=== PATIENT | female | born 1945 | race Caucasian/White ===

== ENCOUNTER → 2017-01-24 | Outpatient (CLI) | payer MEDICARE ==
--- NOTE | 2017-01-25 09:25 | MM ---
Reason for exam: screening (asymptomatic). Last mammogram was performed 1 year ago. History: Patient is postmenopausal. Physical Findings: A clinical breast exam by your physician is recommended on an annual basis and results should be correlated with mammographic findings. MG 3D Screening Mammo W/Cad Bilateral CC and MLO view(s) were taken. Prior study comparison: January 21, 2016, bilateral MG screening mammo w CAD. March 28, 2014, bilateral MG screening mammo w CAD. January 01, 2013, bilateral digital screening mammo w/CAD. The breast tissue is heterogeneously dense. This may lower the sensitivity of mammography. Finding: There are typically benign vascular calcifications in both breasts. There is no discrete abnormality. ASSESSMENT: Benign, BI-RAD 2 RECOMMENDATION: Routine screening mammogram of both breasts in 1 year.
== END | disposition home or self-care (01) ==
LOC: RADMAMWWP 08:58
PROVIDERS: ATTEND Family Medicine
DX: Z12.31 Encounter for screening mammogram for malignant neoplasm of breast (principal)
CPT/HCPCS: 77063; G0202

== ENCOUNTER → 2018-02-14 | Outpatient (CLI) | payer MEDICARE ==
--- NOTE | 2018-02-15 12:08 | MM ---
Reason for exam: screening (asymptomatic). Last mammogram was performed 1 year and 1 month ago. History: Patient is postmenopausal. Physical Findings: A clinical breast exam by your physician is recommended on an annual basis and results should be correlated with mammographic findings. MG 3D Screening Mammo W/Cad Bilateral CC and MLO view(s) were taken. Prior study comparison: January 24, 2017, bilateral MG 3d screening mammo w/cad. January 21, 2016, bilateral MG screening mammo w CAD. No significant changes when compared with prior studies. ASSESSMENT: Benign, BI-RAD 2 RECOMMENDATION: Routine screening mammogram of both breasts in 1 year.
== END | disposition home or self-care (01) ==
LOC: RADMAMWWP 09:45
PROVIDERS: ATTEND Family Medicine
DX: Z12.31 Encounter for screening mammogram for malignant neoplasm of breast (principal)
CPT/HCPCS: 77063; 77067

== ENCOUNTER → 2018-07-13 | Outpatient (CLI) | payer MEDICARE ==
--- NOTE | 2018-07-14 07:11 | US ---
EXAMINATION TYPE: US carotid duplex BILAT DATE OF EXAM: 07/13/2018 COMPARISON: NONE CLINICAL HISTORY: I65.23 OCCLUSION AND STENOSIS OF BOYD.CAROTID. Patient states that plaque was seen on her dental x-rays. EXAM MEASUREMENTS: RIGHT: Peak Systolic Velocity (PSV) cm/sec ----- Right CCA: 78.5 ----- Right ICA: 102 ----- Right ECA: 74.2 ICA/CCA ratio: 1.30 RIGHT: End Diastole cm/sec ----- Right CCA: 19.4 ----- Right ICA: 33.9 ----- Right ECA: 12.9 LEFT: Peak Systolic Velocity (PSV) cm/sec ----- Left CCA: 87.6 ----- Left ICA: 82.3 ----- Left ECA: 96.0 ICA/CCA ratio: 0.94 LEFT: End Diastole cm/sec ----- Left CCA: 19.9 ----- Left ICA: 24.9 ----- Left ECA: 11.6 VERTEBRALS (direction of flow): Right Vertebral: Antegrade Left Vertebral: Antegrade Rhythm: Normal Mild plaque, no significant velocity elevations. IMPRESSION: No evidence for hemodynamically significant stenosis. Criteria for Assigning % of Stenosis / Diameter reduction (Estimation based on the indirect measurements of the internal carotid artery velocities (ICA PSV). 1. Normal (no stenosis)=ICA PSV < 125 cm/s: ratio < 2.0: ICA EDV<40 cm/s. 2. Less than 50% stenosis=ICA PSV < 125 cm/s: ratio < 2.0: ICA EDV<40 cm/s. 3. 50 to 69% stenosis=ICA PSV of 125 to 230 cm/s: ration 2.0 ? 4.0: ICA EDV 40-100 cm/s. 4. Greater than 70% stenosis to near occlusion= ICA PSV > 230 cm/s: ratio > 4.0: ICA EDV > 100 cm/s. 5. Near occlusion= ICA PSV velocities may be low or undetectable: variable ratio and ICA EDV. 6. Total occlusion=unable to detect flow.
== END | disposition home or self-care (01) ==
LOC: RADUSWWP 15:17
PROVIDERS: ATTEND Family Medicine
DX: I65.23 Occlusion and stenosis of bilateral carotid arteries (principal)
CPT/HCPCS: 93880

== ENCOUNTER → 2019-02-16 | Outpatient (CLI) | payer MEDICARE ==
--- NOTE | 2019-02-20 14:50 | MM ---
Reason for exam: screening (asymptomatic). Last mammogram was performed 1 year ago. History: Patient is postmenopausal. Physical Findings: A clinical breast exam by your physician is recommended on an annual basis and results should be correlated with mammographic findings. MG 3D Screening Mammo W/Cad Bilateral CC and MLO view(s) were taken. Prior study comparison: February 14, 2018, bilateral MG 3d screening mammo w/cad. January 24, 2017, bilateral MG 3d screening mammo w/cad. The breast tissue is heterogeneously dense. This may lower the sensitivity of mammography. Benign appearing bilateral calcifications. Left upper outer quadrant middle posterior depth focal asymmetry 8cm from nipple measuring 1.6cm from nipple. ASSESSMENT: Incomplete: need additional imaging evaluation, BI-RAD 0 RECOMMENDATION: Ultrasound of the left breast. [facility] will attempt to contact patient to return for ultrasound.
== END | disposition home or self-care (01) ==
LOC: RADMAMWWP 07:32
PROVIDERS: ATTEND Family Medicine
DX: Z12.31 Encounter for screening mammogram for malignant neoplasm of breast (principal)
CPT/HCPCS: 77063; 77067

== ENCOUNTER → 2019-02-27 | Outpatient (CLI) | payer MEDICARE ==
--- NOTE | 2019-02-27 10:18 | USB ---
Reason for exam: additional evaluation requested from abnormal screening. History: Patient is postmenopausal. Physical Findings: Nurse did not find any significant physical abnormalities on exam. US Breast Workup Limited LT Left limited breast ultrasound including focal area of concern, retroareolar and axilla demonstrates a 0.8 x 0.9 x 0.9cm taller than wide, lobular, solid lesion at 1 o'clock correlates with mammogram, suspicious, biopsy recommended and a 1.3 x 1.0 x 0.4cm oval, cystic lesion at 3 o'clock, stable on mammogram back to 2012. These results were verbally communicated with the patient and result sheet given to the patient on 02/27/19. ASSESSMENT: Suspicious, BI-RAD 4 RECOMMENDATION: Ultrasound core biopsy of the left breast. Called Dr. Gates with mammographic findings and has scheduled an appointment for the patient for 03/02/19 at 9:[address] Mary. Biopsy scheduled for 03/12/19 at 12:20. PRELIMINARY REPORT CALLED AND FAXED TO DR. MARY ON 02/27/19.
== END | disposition home or self-care (01) ==
LOC: RADUSWWP 08:45
PROVIDERS: ATTEND Family Medicine
DX: R92.8 Other abnormal and inconclusive findings on diagnostic imaging of breast (principal)

== ENCOUNTER → 2019-03-02 | Outpatient (CLI) | payer MEDICARE ==
[2019-03-02 09:39] VITALS: BP 170/84; PULSE 85; RESP 18; TEMP 97.9; BMI 36.3
--- NOTE | 2019-03-02 09:58 | P.GSHP ---
History of Present Illness H&P Date: 03/02/19 Chief Complaint: Abnormal radiographs Sugey is a 73-year-old white female status post routine screening mammogram [place] [id number]. The mammogram revealed a left upper outer quadrant middle posterior depth 1.6 cm focal asymmetry. [place] [id number]. This revealed a 0.8 x 0.9 cm tolerated and wide lobular solid lesion at 1:00 correlating with a mammographic area of concern biopsy was recommended. She was also noted to have a 1.3 x 1 cm cystic lesion at 3:00 which was felt to be stable. The patient herself has not felt anything of concern in her breasts. No nipple discharge or skin changes. No history of recent trauma or infection in the breast. She did not have anything of concern noted in the right breast on her radiographs. The patient drinks approximately 3 cups of coffee per day. She does not drink pop. She does not smoke and is not exposed to secondhand smoke. She eats chocolate occasionally. Family history: 1. father: rectal 2. paternal grandfather: colon cancer 3. sister: lung cancer Hormonal History: menarche: 16 , breast fed: no, age at first : 21 menopause: hysterectomy at 40 still has ovaries, done for fibroids BCP: 2 years hormones: 1 year at age 52 think just estrogne Past surgical history: 1. Tubal ligation 2. Hysterectomy 3. Rectocele 4. Cystocele 5. Right arm fracture of humerus Medical history: arthritis right knee pain hypothyroid Social History: smoke:none alcohol: none drugs: none - Constitutional Constitutional: Denies chills, Denies fever - EENT Comment: wears glasses Eyes: denies blurred vision, denies pain Ears: deny: decreased hearing, tinnitus Ears, nose, mouth and throat: Denies headache, Denies sore throat - Breasts Breasts: bilateral: as per HPI - Cardiovascular Cardiovascular: Denies chest pain, Denies shortness of breath - Respiratory Respiratory: Denies cough, Denies 7 - Gastrointestinal Gastrointestinal: Denies abdominal pain, Denies diarrhea, Denies nausea, Denies vomiting - Genitourinary (Female) Comment: Cystocele repair Genitourinary: Denies dysuria, Denies hematuria - Menstruation Menstruation: Reports post hysterectomy - Musculoskeletal Comment: arthritis - Integumentary Integumentary: Denies pruritus, Denies rash - Neurological Neurological: Denies numbness, Denies weakness - Psychiatric Psychiatric: Denies anxiety, Denies depression - Endocrine Endocrine: Denies fatigue, Denies weight change - Hematologic/Lymphatic Comment: baby aspirin every day - Allergic/Immunologic Allergic/Immunologic: Reports as per HPI Past Medical History Past Medical History: Hyperlipidemia, Thyroid Disorder Additional Past Medical History / Comment(s): varicose veins, past hx migraines, fell Tuesday & fx. right upper arm-currently sling & half cast History of Any Multi-Drug Resistant Organisms: None Reported Past Surgical History: Appendectomy, Hysterectomy Additional Past Surgical History / Comment(s): rectocele/cystocele repair, cataract surg. Past Anesthesia/Blood Transfusion Reactions: Motion Sickness Past Psychological History: No Psychological Hx Reported Smoking Status: Never smoker Past Alcohol Use History: None Reported Past Drug Use History: None Reported - Past Family History Father Family Medical History: Cancer Sister(s) Family Medical History: Cancer Medications and Allergies Home Medications Medication Instructions Recorded Confirmed Type Aspirin 81 mg PO DAILY 04/19/14 06/27/15 History Levothyroxine Sodium [Synthroid] 50 mcg PO DAILY 04/19/14 06/27/15 History Simvastatin [Zocor] 20 mg PO DAILY 04/19/14 06/27/15 History Calcium Carbonate [Calcium] 1,200 mg PO DAILY 06/25/15 06/27/15 History Cholecalciferol [Vitamin D3] 1,000 unit PO DAILY@1200 06/25/15 06/27/15 History Multivit with Calcium,Iron,Min 1 each PO DAILY 06/25/15 06/27/15 History [Women's Daily Multivitamin] Allergies Allergy/AdvReac Type Severity Reaction Status Date / Time nickel [Nickel] Allergy Rash/Hives Verified 03/02/19 09:39 Surgical - Exam Vital Signs Temp Pulse Resp BP Pulse Ox 97.9 F 85 18 170/84 95 03/02/19 09:32 03/02/19 09:32 03/02/19 09:32 03/02/19 09:32 03/02/19 09:32 BMI 36.3 - General well developed, well nourished, no distress - Eyes normal ocular movement - ENT no hearing loss, no congestion - Neck no masses, trachea midline - Respiratory normal respiratory effort, clear to auscultation - Cardiovascular Rhythm: regular Heart Sounds: normal: S1, S2 - Abdomen Abdomen: soft, non tender, no guarding, no rigid, no rebound - Integumentary normal turgor - Neurologic no disoriented, no combative - Musculoskeletal normal gait, normal posture - Psychiatric oriented to time, oriented to person, oriented to place, speech is normal, memory intact breast exam: Right breast: Multi-positional exam no dominant masses or nodules of concern Right axilla: No adenopathy of concern Left breast: Slightly inverted nipple patient states this has been chronic Multi-positional exam fibrocystic changes no dominant masses or nodules of concern Left axilla: No adenopathy of concern Results Mammogram and ultrasound reports reviewed Assessment and Plan Assessment: Impression: 1. Abnormal mammogram left breast 2. ultrasound core biopsy of the left breast 3. Family history of cancer 4. Arthritis 5. Hypothyroid 6. Fibrocystic breast changes Plan: 1. Ultrasound-guided core biopsy left breast 2. Follow-up after ultrasound-guided core biopsy 3. Medical management of medical conditions Cc: Dr. Rob Gates
== END | disposition home or self-care (01) ==
LOC: WWCWWP 09:27
PROVIDERS: ATTEND Surgery
DX: Z53.9 Procedure and treatment not carried out, unspecified reason (principal)

== ENCOUNTER → 2019-03-12 | Day surgery (SDC) | payer MEDICARE ==
[2019-03-12 11:41] VITALS: RESP 16; BMI 36.3
[2019-03-12 14:46] VITALS: BP 149/81; PULSE 73; TEMP 98.4
--- NOTE | 2019-03-12 16:39 | USB ---
EXAMINATION TYPE: US biopsy breast VAD LT, Postbiopsy MG diagnostic mammo LT wo CAD DATE OF EXAM: 03/12/2019 CLINICAL HISTORY: 73-year-old female R92.8 ABN MAMMO. TECHNIQUE: Ultrasound guided core biopsy of 1:00 left breast. COMPARISON: 02/16/2019 and 02/27/2019 FINDINGS: The procedure of ultrasound guided core biopsy was explained to the patient. Benefits, alternatives, and risks were discussed. An informed consent was then obtained. The patient was placed in supine positioning for imaging and for the procedure. The overlying skin was prepped and draped in usual sterile fashion. Lidocaine was used as anesthetic into the skin and subcutaneous tissue up to area of concern in the 1:00 left breast. Under ultrasound guidance, a 13-gauge vacuum-assisted mammotome biopsy gun device was used to obtain 6 core samples. Following this, a coil clip was left in lesion. The patient tolerated the procedure well without any immediate complication. The patient was kept in the radiology department for short stay after the procedure and then discharged home in stable condition. Post procedure mammogram shows clip in the posterior upper-outer quadrant more peripheral in location than the area of isodense focal asymmetry which appears to have been present dating back to 2013. IMPRESSION: Successful, uncomplicated ultrasound guided core biopsy of area of concern in the 1:00 left breast, full pathology results to follow. The clip is located in the peripheral upper outer quadrant and mammographic review shows no clear mammographic correlate to the biopsy ultrasound finding. Pathology Results: Benign LEFT BREAST LESION, NEEDLE CORE BIOPSY: Benign fibrovascular and adipose tissue with hemorrhage. Cannot rule out intramammary lipoma. Recommendation Follow up mammogram of the left breast in 6 months. DANIELLA
== END ==
LOC: RADUSWWP 11:08
PROVIDERS: ATTEND Surgery
DX: N64.89 Other specified disorders of breast (principal)
CPT/HCPCS: 88305; 77065; 19083; A4648; J2001

== ENCOUNTER → 2019-03-23 | Outpatient (CLI) | payer MEDICARE ==
[2019-03-23 16:26] VITALS: BP 141/82; PULSE 75; RESP 18; TEMP 98.1; BMI 36.1
--- NOTE | 2019-03-23 17:32 | P.PN ---
Subjective Progress Note Date: 03/23/19 Sugey is a 73-year-old white female status post ultrasound-guided core biopsy of the left breast on [id number]. Pathology revealed benign fibrovascular and adipose tissue with hemorrhage. Cannot rule out intramammary lipoma. The patient post procedure does not have any complaints related to the procedure. Objective - Vital Signs Vital signs: Vital Signs Temp 98.1 F 03/23/19 16:22 Pulse 75 03/23/19 16:22 Resp 18 03/23/19 16:22 BP 141/82 03/23/19 16:22 Pulse Ox 98 03/23/19 16:22 Intake & Output 03/22/19 03/23/19 03/23/19 18:59 06:59 18:59 Weight 83.915 kg - Exam BMI 36.1 - Constitutional General appearance: Present: obese - EENT Eyes: Present: EOMI ENT: Present: hearing grossly normal - Neck Neck: Present: normal ROM - Respiratory Respiratory: bilateral: CTA - Cardiovascular Rhythm: regular Heart sounds: normal: S1, S2 - Integumentary Integumentary: Present: normal turgor - Musculoskeletal Musculoskeletal: Present: gait normal - Psychiatric Psychiatric: Present: A&O x's 3, appropriate affect, intact judgment & insight - Additional findings Additional findings: Left breast : biopsy site clean and dry no evidence of infection Assessment and Plan Assessment: Impression: 1. Patient status post left breast ultrasound core biopsy, pathology benign, will review with radiology to be sure the lesion was concordant as it was tolerated and wide Plan: 1. Review case with radiology next week if the lesion is felt to be concordant patient will have repeat left breast mammogram and ultrasound in 6 months with physician exam at that time 2. If cases discordant patient will have needle local excisional biopsy Cc: Dr. Rob Gates
== END ==
LOC: WWCWWP 16:04
PROVIDERS: ATTEND Surgery
DX: Z53.9 Procedure and treatment not carried out, unspecified reason (principal)

== ENCOUNTER → 2020-04-10 | Outpatient (CLI) | payer MEDICARE ==
--- NOTE | 2020-04-14 14:09 | MM ---
Reason for exam: screening (asymptomatic). Last mammogram was performed 1 year and 1 month ago. History: Patient is postmenopausal. Benign US biopsy breast VAD LT of the left breast, March 12, 2019. Physical Findings: A clinical breast exam by your physician is recommended on an annual basis and results should be correlated with mammographic findings. MG 3D Screening Mammo W/Cad Bilateral CC and MLO view(s) were taken. Prior study comparison: March 12, 2019, left breast MG diagnostic mammo LT wo CAD. February 16, 2019, bilateral MG 3d screening mammo w/cad. There are scattered fibroglandular densities. No significant changes when compared with prior studies. ASSESSMENT: Benign, BI-RAD 2 RECOMMENDATION: Routine screening mammogram of both breasts in 1 year.
== END | disposition home or self-care (01) ==
LOC: RADMAMWWP 11:01
PROVIDERS: ATTEND Family Medicine
DX: Z12.31 Encounter for screening mammogram for malignant neoplasm of breast (principal)
CPT/HCPCS: 77063; 77067

== ENCOUNTER → 2020-10-21 | Outpatient (CLI) | payer MEDICARE ==
--- NOTE | 2020-10-21 12:31 | CT ---
EXAMINATION TYPE: CT abdomen pelvis w con DATE OF EXAM: 10/21/2020 COMPARISON: None HISTORY: R10.9 abd pain CONTRAST: CT scan of the abdomen and pelvis is performed with Oral Contrast and with IV Contrast, patient injec todd with 100 mL of Isovue 300. FINDINGS: LUNG BASES-: No visible nodule. No infiltrate. Small hiatal hernia noted. LIVER/GB: No calcified gallstones. No space occupying hepatic lesion. Biliary tree is of normal ca liber. PANCREAS: No inflammation. No distinct mass. SPLEEN: No splenic enlargement. No lesion seen. ADRENALS: No nodule. No thickening. KIDNEYS/BLADDER: No hydronephrosis. No nephrolithiasis. No distinct renal mass. Urinary bladder g rossly unremarkable. BOWEL: Normal appendix. Normal bowel caliber. No inflammation. GENITAL ORGANS: Hysterectomy changes noted. LYMPH NODES: No greater than 1cm abdominal or pelvic lymph nodes are appreciated. AORTA: No significant abnormality. OSSEOUS STRUCTURES: No significant abnormality is seen. OTHER: No significant additional abnormality is seen. IMPRESSION: 1. No acute process to account for the patient's symptoms.
== END | disposition home or self-care (01) ==
LOC: RADCTMAIN 10:28
PROVIDERS: ATTEND Nurse Practitioner
DX: R10.9 Unspecified abdominal pain (principal)
CPT/HCPCS: 82565; 84520; 74177; 36415; Q9967

== ENCOUNTER 2020-12-24 08:36 | Day surgery (SDC) | payer MEDICARE ==
[2020-12-19 12:05] VITALS: BMI 33.7
--- NOTE | 2020-12-24 08:14 | P.GSHP ---
History of Present Illness H&P Date: 12/24/20 CHIEF COMPLAINT: GERD and colon screen HISTORY OF PRESENT ILLNESS: The patient is a 75-year-old female who presents with gastroesophageal reflux disease and need for colon screen. Upper and lower endoscopy were offered for further evaluation and management. PAST MEDICAL HISTORY: Please see list. PAST SURGICAL HISTORY: Please see list. MEDICATIONS: Please see list. ALLERGIES: Please see list. SOCIAL HISTORY: No illicit drug use FAMILY HISTORY: No reports of Crohn disease or ulcerative colitis. REVIEW OF ORGAN SYSTEMS: CONSTITUTIONAL: No reports of fevers or chills. GI: Denies any blood in stools or constipation. PHYSICAL EXAM: VITAL SIGNS: Stable GENERAL: Well-developed pleasant in no acute distress. HEENT: No scleral icterus. Extraocular movements grossly intact. Moist buccal mucosa. NECK: Supple without lymphadenopathy. CHEST: Unlabored respirations. Equal bilateral excursions. CARDIOVASCULAR: Regular rate and rhythm. Distal 2+ pulses. ABDOMEN: Soft, nondistended. MUSCULOSKELETAL: No clubbing, cyanosis, or edema. ASSESSMENT: 1. Gastroesophageal reflux disease 2. Colon screen. PLAN: 1. Recommend proceeding with an upper and lower endoscopy Past Medical History Past Medical History: Hyperlipidemia, Thyroid Disorder Additional Past Medical History / Comment(s): varicose veins, past hx migraines, fell 2015 & fx. right upper arm-currently sling & half cast,occas vertigo History of Any Multi-Drug Resistant Organisms: None Reported Past Surgical History: Appendectomy, Hysterectomy, Orthopedic Surgery, Tubal Ligation Additional Past Surgical History / Comment(s): rectocele/cystocele repair, cataract surg, fx right arm-put a plate and screws in Past Anesthesia/Blood Transfusion Reactions: No Reported Reaction Additional Past Anesthesia/Blood Transfusion Reaction / Comment(s): occas vertigo Smoking Status: Never smoker - Past Family History Father Family Medical History: Cancer Sister(s) Family Medical History: Cancer Medications and Allergies Home Medications Medication Instructions Recorded Confirmed Type Aspirin 81 mg PO DAILY 04/19/14 12/19/20 History Levothyroxine Sodium [Synthroid] 50 mcg PO QAM 04/19/14 12/19/20 History Simvastatin [Zocor] 20 mg PO DAILY 04/19/14 12/19/20 History Cholecalciferol [Vitamin D3] 500 unit PO DAILY@1200 06/25/15 12/19/20 History Multivit with Calcium,Iron,Min 1 each PO DAILY 06/25/15 12/19/20 History [Women's Daily Multivitamin] Calcium Carbonate/Vitamin D3 1 each PO DAILY 12/19/20 12/19/20 History [Calcium 600 mg-D3 20 mcg (800 unit)] Famotidine [Pepcid] 40 mg PO DAILY 12/19/20 12/19/20 History Magnesium 250 mg PO MOWEFR 12/19/20 12/19/20 History Zinc 30 mg PO TUTHSA 12/19/20 12/19/20 History Allergies Allergy/AdvReac Type Severity Reaction Status Date / Time adhesive Allergy Rash/Hives Verified 12/19/20 12:05 nickel [Nickel] Allergy Rash/Hives Verified 12/19/20 11:55
[~2020-12-24 08:36] MED LIST: LACTATED RINGERS 1,000 ML IV SCH; LIDOCAINE 1% (10MG/ML) FOR IV START INTRADERMA PRN
[2020-12-24 09:04] VITALS: TEMP 98.3
[2020-12-24] MEDS ORDERED: LIDOCAINE 1% INJ 10MG/ML (20 ML MDV) ONE (09:33)
[2020-12-24] MEDS ORDERED: PROPOFOL 10 MG/ML 20 ML VIAL IV ONE (09:33)
--- NOTE | 2020-12-24 09:45 | P.PCN ---
Date of Procedure: 12/24/20 Description of Procedure: PREOPERATIVE DIAGNOSIS: Gastroesophageal reflux disease. POSTOPERATIVE DIAGNOSIS: Gastritis. Superficial gastric ulcer Gastroesophageal reflux disease. Diaphragmatic hiatal hernia OPERATION: Esophagogastroduodenoscopy with biopsies along antrum. SURGEON: Jenifer Shen MD ANESTHESIA: MAC. INDICATIONS: The patient is a 75-year-old female who presents with a history of reflux disease. Benefits and risks of the procedure were described. Informed consent was obtained. DESCRIPTION: The patient was brought into the endoscopy suite and laid in the left lateral decubitus position. An Olympus gastroscope was passed along the posterior oropharynx down to the distal esophagus where the squamocolumnar junction was encountered at 35 cm from the incisors. The stomach was entered and no bile reflux was found. Additional findings are listed below. Biopsies with cold forceps were obtained of the antrum. The first through third portion of the duodenum was examined and unremarkable. Retroflexion of the scope confirmed Hill grade 2 lower esophageal valve. The squamocolumnar junction demonstrated LA grade B erosive esophagitis. The stomach was desufflated. The patient tolerated the procedure well. FINDINGS: Squamocolumnar junction 35 cm from the incisors. Diaphragmatic hiatus at 37 cm. Hiatal hernia, 2 cm Hill grade 2 lower esophageal valve. LA grade B erosive esophagitis. No active duodenitis. Superficial gastric ulcer without bleeding Chronic gastritis RECOMMENDATIONS: Upper endoscopy as needed. Omeprazole 40 mg daily for 2 weeks
--- NOTE | 2020-12-24 10:23 | P.PCN ---
Date of Procedure: 12/24/20 Description of Procedure: PREOPERATIVE DIAGNOSIS: Family history malignant colon polyps Colonoscopy screening POSTOPERATIVE DIAGNOSIS: Family history malignant colon polyps Tubular adenoma ascending colon Tubular adenoma rectum OPERATION: Colonoscopy to the ileocecal valve and appendiceal orifice, cecum Colonoscopy with hot snare polypectomy Colonoscopy with cold forceps biopsy SURGEON: Jenifer Shen MD. ANESTHESIA: MAC. INDICATIONS: The patient is an 75-year-old female who presents family history of malignant colon polyps. She presents for colonoscopy screening. Benefits and risks were described and informed consent was obtained. DESCRIPTION OF PROCEDURE: The patient had undergone Sutab prep. The patient had been brought into the operating room and laid in the left lateral decubitus position. After adequate intravenous sedation, the rectum was examined with 2% lidocaine jelly. No external hemorrhoids were encountered. The rectal tone was within normal limits. No lesions were palpated in the rectal vault. An Olympus colonoscope was advanced until the cecum, ileocecal valve and appendiceal orifice were clearly viewed. The prep was excellent. No sigmoid diverticulosis was encountered. The sigmoid colon was highly redundant requiring abdominal wall pressure. Colonic polyps were found and removed. No evidence of focal colitis was found. Retroflexion of the scope demonstrated grade 1 internal hemorrhoids without active bleeding or inflammation. The colon was desufflated. The patient had tolerated the procedure well. Withdrawal time was over 6 minutes. FINDINGS: Aronchick preparation quality scale 1 (1-5) Internal hemorrhoids, grade 1 No external hemorrhoids No arteriovenous malformations. No large sigmoid diverticulosis Removal of 2 polyps: - Snare polypectomy at rectum 10 mm tubulovillous adenoma polyp. - Cold forceps biopsy at ascending colon, 4 mm polyp. No focal colitis. RECOMMENDATIONS: Repeat colonoscopy in 3 years, 2023 Plan - Discharge Summary Discharge Rx Participant: No New Discharge Prescriptions: New Omeprazole [PriLOSEC] 40 mg PO DAILY #14 cap Continue Simvastatin [Zocor] 20 mg PO DAILY Levothyroxine Sodium [Synthroid] 50 mcg PO QAM Aspirin 81 mg PO DAILY Cholecalciferol [Vitamin D3 (25 Mcg = 1000 Iu)] 500 unit PO DAILY@1200 Multivit with Calcium,Iron,Min [Women's Daily Multivitamin] 1 each PO DAILY Famotidine [Pepcid] 40 mg PO DAILY Zinc 30 mg PO TUTHSA Magnesium 250 mg PO MOWEFR Calcium Carbonate/Vitamin D3 [Calcium 600 mg-D3 20 mcg (800 unit)] 1 each PO DAILY Discharge Medication List Aspirin 81 mg PO DAILY 04/19/14 [History] Levothyroxine Sodium [Synthroid] 50 mcg PO QAM 04/19/14 [History] Simvastatin [Zocor] 20 mg PO DAILY 04/19/14 [History] Cholecalciferol [Vitamin D3 (25 Mcg = 1000 Iu)] 500 unit PO DAILY@1200 06/25/15 [History] Multivit with Calcium,Iron,Min [Women's Daily Multivitamin] 1 each PO DAILY 06/25/15 [History] Calcium Carbonate/Vitamin D3 [Calcium 600 mg-D3 20 mcg (800 unit)] 1 each PO DAILY 12/19/20 [History] Famotidine [Pepcid] 40 mg PO DAILY 12/19/20 [History] Magnesium 250 mg PO MOWEFR 12/19/20 [History] Zinc 30 mg PO TUTHSA 12/19/20 [History] Omeprazole [PriLOSEC] 40 mg PO DAILY #14 cap 12/24/20 [Rx] Follow up Appointment(s)/Referral(s): Jenifer Shen MD [STAFF PHYSICIAN] - 12/30/20 Patient Instructions/Handouts: *Surgery [facility] - (Anesthesia) Endoscopy Discharge Instructions, Colorectal Polyps (DC), Peptic Ulcer (DC), Diet for Stomach Ulcers and Gastritis (ED) Activity/Diet/Wound Care/Special Instructions: Repeat colonoscopy 3 years, 2023 Discharge Disposition: HOME SELF-CARE
[2020-12-24 10:36] VITALS: BP 160/87; PULSE 64; RESP 18
== END 2020-12-24 11:04 | disposition home or self-care (01) ==
LOC: ORWHC2ENDO 08:36
PROVIDERS: ATTEND Surgery Plastic and Reconstructive Surgery
DX: Z12.11 Encounter for screening for malignant neoplasm of colon (principal); K64.8 Other hemorrhoids; K29.50 Unspecified chronic gastritis without bleeding; D12.6 Benign neoplasm of colon, unspecified; E78.5 Hyperlipidemia, unspecified; E07.9 Disorder of thyroid, unspecified; Z80.0 Family history of malignant neoplasm of digestive organs; Z79.899 Other long term (current) drug therapy; Z91.048 Other nonmedicinal substance allergy status
CPT/HCPCS: 88305; 88342; 45380; 45385; 43239; J2001; J2704

== ENCOUNTER 2021-02-18 09:00 | Day surgery (SDC) | payer MEDICARE ==
[2021-02-13 11:22] VITALS: BMI 32.8
--- NOTE | 2021-02-18 05:58 | P.GSHP ---
History of Present Illness H&P Date: 02/18/21 CHIEF COMPLAINT: GERD HISTORY OF PRESENT ILLNESS: The patient is a 75-year-old female who presents reports gastroesophageal reflux disease. Upper endoscopy was offered for further evaluation and management. PAST MEDICAL HISTORY: Please see list. PAST SURGICAL HISTORY: Please see list. MEDICATIONS: Please see list. ALLERGIES: Please see list. SOCIAL HISTORY: No illicit drug use FAMILY HISTORY: No reports of Crohn disease or ulcerative colitis. REVIEW OF ORGAN SYSTEMS: CONSTITUTIONAL: No reports of fevers or chills. GI: Denies any blood in stools or constipation. PHYSICAL EXAM: VITAL SIGNS: Stable GENERAL: Well-developed and pleasant in no acute distress. HEENT: No scleral icterus. Extraocular movements grossly intact. Moist buccal mucosa. NECK: Supple without lymphadenopathy. CHEST: Unlabored respirations. Equal bilateral excursions. CARDIOVASCULAR: Regular rate and rhythm. Distal 2+ pulses. ABDOMEN: Soft, nondistended. MUSCULOSKELETAL: No clubbing, cyanosis, or edema. ASSESSMENT: 1. Gastroesophageal reflux disease PLAN: 1. Recommend proceeding with an upper endoscopy Past Medical History Past Medical History: Hyperlipidemia, Thyroid Disorder Additional Past Medical History / Comment(s): varicose veins, past hx migraines, fell 2015 & fx. right upper.occas vertigo, Dx. wit H pylori- has been on antbx. & re checking for this. History of Any Multi-Drug Resistant Organisms: None Reported Past Surgical History: Appendectomy, Hysterectomy, Orthopedic Surgery, Tubal Ligation Additional Past Surgical History / Comment(s): rectocele/cystocele repair, cataract surg, fx right arm-put a plate and screws in Past Anesthesia/Blood Transfusion Reactions: No Reported Reaction Additional Past Anesthesia/Blood Transfusion Reaction / Comment(s): occas vertigo Smoking Status: Never smoker - Past Family History Father Family Medical History: Cancer Additional Family Medical History / Comment(s): Colon Sister(s) Family Medical History: Cancer Medications and Allergies Home Medications Medication Instructions Recorded Confirmed Type Aspirin 81 mg PO DAILY 04/19/14 02/13/21 History Levothyroxine Sodium [Synthroid] 50 mcg PO QAM 04/19/14 02/13/21 History Simvastatin [Zocor] 20 mg PO DAILY 04/19/14 02/13/21 History Cholecalciferol [Vitamin D3 (25 500 unit PO DAILY@1200 06/25/15 02/13/21 History Mcg = 1000 Iu)] Multivit with Calcium,Iron,Min 1 each PO DAILY 06/25/15 02/13/21 History [Women's Daily Multivitamin] Calcium Carbonate/Vitamin D3 1 each PO DAILY 12/19/20 02/13/21 History [Calcium 600 mg-D3 20 mcg (800 unit)] Magnesium 250 mg PO MOWEFR 12/19/20 02/13/21 History Zinc 30 mg PO TUTHSA 12/19/20 02/13/21 History Omeprazole [PriLOSEC] 40 mg PO DAILY #90 cap 12/30/20 02/13/21 Rx Allergies Allergy/AdvReac Type Severity Reaction Status Date / Time adhesive Allergy Rash/Hives Verified 02/13/21 11:05 nickel [Nickel] Allergy Rash/Hives Verified 02/13/21 11:05
[~2021-02-18 09:00] MED LIST changes: -LIDOCAINE 1% (10MG/ML) FOR IV START INTRADERMA PRN
[2021-02-18 09:35] VITALS: TEMP 98.5
[2021-02-18] MEDS ORDERED: LIDOCAINE 1% INJ 10MG/ML (20 ML MDV) ONE (09:40)
[2021-02-18] MEDS ORDERED: PROPOFOL 10 MG/ML 20 ML VIAL IV ONE (09:40)
[2021-02-18 09:58] VITALS: RESP 16
--- NOTE | 2021-02-18 10:00 | P.PCN ---
Date of Procedure: 02/18/21 Description of Procedure: PREOPERATIVE DIAGNOSIS: Gastroesophageal reflux disease. H. pylori gastritis POSTOPERATIVE DIAGNOSIS: Gastritis. Gastroesophageal reflux disease. Diaphragmatic hiatal hernia OPERATION: Esophagogastroduodenoscopy with biopsies along antrum. SURGEON: Jenifer Shen MD ANESTHESIA: MAC. INDICATIONS: The patient is a 75-year-old female who presents with a history of reflux disease. Benefits and risks of the procedure were described. Informed consent was obtained. DESCRIPTION: The patient was brought into the endoscopy suite and laid in the left lateral decubitus position. An Olympus gastroscope was passed along the posterior oropharynx down to the distal esophagus where the squamocolumnar junction was encountered at 35 cm from the incisors. The stomach was entered and no bile reflux was found. Additional findings are listed below. Biopsies with cold forceps were obtained of the antrum. The first through third portion of the duodenum was examined and unremarkable. Retroflexion of the scope confirmed Hill grade 3 lower esophageal valve. The squamocolumnar junction demonstrated LA grade B erosive esophagitis. The stomach was desufflated. The patient tolerated the procedure well. FINDINGS: Squamocolumnar junction 35 cm from the incisors. Diaphragmatic hiatus at 38 cm. Hiatal hernia, 3 cm Hill grade 3 lower esophageal valve. LA grade B erosive esophagitis. No active duodenitis. Chronic gastritis RECOMMENDATIONS: Upper endoscopy as needed. Plan - Discharge Summary Discharge Rx Participant: Yes New Discharge Prescriptions: Continue Simvastatin [Zocor] 20 mg PO DAILY Levothyroxine Sodium [Synthroid] 50 mcg PO QAM Aspirin 81 mg PO DAILY Cholecalciferol [Vitamin D3 (25 Mcg = 1000 Iu)] 500 unit PO DAILY@1200 Multivit with Calcium,Iron,Min [Women's Daily Multivitamin] 1 each PO DAILY Zinc 30 mg PO TUTHSA Magnesium 250 mg PO MOWEFR Calcium Carbonate/Vitamin D3 [Calcium 600 mg-D3 20 mcg (800 unit)] 1 each PO DAILY Omeprazole [PriLOSEC] 40 mg PO DAILY #90 cap Discharge Medication List Aspirin 81 mg PO DAILY 04/19/14 [History] Levothyroxine Sodium [Synthroid] 50 mcg PO QAM 04/19/14 [History] Simvastatin [Zocor] 20 mg PO DAILY 04/19/14 [History] Cholecalciferol [Vitamin D3 (25 Mcg = 1000 Iu)] 500 unit PO DAILY@1200 06/25/15 [History] Multivit with Calcium,Iron,Min [Women's Daily Multivitamin] 1 each PO DAILY 06/25/15 [History] Calcium Carbonate/Vitamin D3 [Calcium 600 mg-D3 20 mcg (800 unit)] 1 each PO DAILY 12/19/20 [History] Magnesium 250 mg PO MOWEFR 12/19/20 [History] Zinc 30 mg PO TUTHSA 12/19/20 [History] Omeprazole [PriLOSEC] 40 mg PO DAILY #90 cap 12/30/20 [Rx] Follow up Appointment(s)/Referral(s): Jenifer Shen MD [STAFF PHYSICIAN] - 03/03/21 Patient Instructions/Handouts: Hiatal Hernia (GEN), Gastritis (DC), Diet for Stomach Ulcers and Gastritis (ED) Discharge Disposition: HOME SELF-CARE
[2021-02-18 10:29] VITALS: BP 152/72; PULSE 62
== END 2021-02-18 10:43 | disposition home or self-care (01) ==
LOC: ORWHC2ENDO 09:00
PROVIDERS: ATTEND Surgery Plastic and Reconstructive Surgery
DX: K29.70 Gastritis, unspecified, without bleeding (principal); K21.9 Gastro-esophageal reflux disease without esophagitis; K44.9 Diaphragmatic hernia without obstruction or gangrene; Z79.82 Long term (current) use of aspirin; E78.5 Hyperlipidemia, unspecified; E07.9 Disorder of thyroid, unspecified; Z79.890 Hormone replacement therapy
CPT/HCPCS: 43239; J2001; J2704; 88305; 88342

== ENCOUNTER → 2021-03-30 | Outpatient (CLI) | payer MEDICARE | END | disposition home or self-care (01) | LOC: LABPAT 11:14 | PROVIDERS: ATTEND Orthopaedic Surgery | DX: Z22.322 Carrier or suspected carrier of Methicillin resistant Staphylococcus aureus (principal); M17.11 Unilateral primary osteoarthritis, right knee | CPT/HCPCS: 87070 ==

== ENCOUNTER → 2021-04-13 | Outpatient (CLI) | payer MEDICARE ==
--- NOTE | 2021-04-14 10:36 | MM ---
Reason for exam: screening (asymptomatic). Last mammogram was performed 1 year ago. History: Patient is postmenopausal. Benign US biopsy breast VAD LT of the left breast, March 12, 2019. Physical Findings: A clinical breast exam by your physician is recommended on an annual basis and results should be correlated with mammographic findings. MG 3D Screening Mammo W/Cad Bilateral CC and MLO view(s) were taken. Prior study comparison: April 10, 2020, bilateral MG 3d screening mammo w/cad. February 27, 2019, left breast US breast workup limited LT. The breast tissue is heterogeneously dense. This may lower the sensitivity of mammography. There are benign appearing vascular calcifications bilaterally. Previous mammotome biopsy in the left breast. There is no discrete abnormality. ASSESSMENT: Benign, BI-RAD 2 RECOMMENDATION: Routine screening mammogram of both breasts in 1 year.
== END | disposition home or self-care (01) ==
LOC: RADMAMWWP 15:32
PROVIDERS: ATTEND Family Medicine
DX: Z12.31 Encounter for screening mammogram for malignant neoplasm of breast (principal); Z78.0 Asymptomatic menopausal state
CPT/HCPCS: 77063; 77067

== ENCOUNTER → 2021-05-06 | Outpatient (CLI) | payer MEDICARE ==
[2021-05-06 12:54] LABS: Basophils % (A) 1 %; Eosinophils # (A) 0.1 k/uL (0-0.7); Eosinophils % (A) 1 %; HGB 13.6 gm/dL (11.4-16.0); Lymphocytes # (A) 1.6 k/uL (1.0-4.8); Lymphocytes % (A) 25 %; MCH 30.9 pg (25.0-35.0); MCHC 33.2 g/dL (31.0-37.0); Mean Platelet Volume 8.8; Monocytes # (A) 0.3 k/uL (0-1.0); Monocytes % (A) 5 %; Neutrophils # (A) 4.1 k/uL (1.3-7.7); Neutrophils % (A) 66 %; Platelet Count 251 k/uL (150-450); RDW 12.4 % (11.5-15.5); WBC 6.3 k/uL (3.8-10.6)
[2021-05-06 13:01] LABS: Prothrombin Time 11.1 sec (9.0-12.0)
[2021-05-06 13:06] LABS: Albumin 4.1 g/dL (3.5-5.0); Calcium 9.5 mg/dL (8.4-10.2); Potassium 4.4 mmol/L (3.5-5.1); Total Bilirubin 0.3 mg/dL (0.2-1.3); Total Protein 7.2 g/dL (6.3-8.2)
--- NOTE | 2021-05-06 15:00 | XR ---
EXAMINATION TYPE: XR chest 2V DATE OF EXAM: 05/06/2021 COMPARISON: None HISTORY: 75-year-old female R03, presurgical evaluation TECHNIQUE: Frontal and lateral views FINDINGS: The cardiomediastinal silhouette, aorta, and pulmonary vasculature are within normal limits. Lungs an d pleural spaces are clear. Partially visualized plate and screw fixation for a humerus. IMPRESSION: No acute cardiopulmonary process.
== END | disposition home or self-care (01) ==
LOC: RADXRMAIN 11:32
PROVIDERS: ATTEND Nurse Practitioner
DX: Z01.818 Encounter for other preprocedural examination (principal)
CPT/HCPCS: 71046; 80053; 85025; 85610; 93005

== ENCOUNTER 2021-06-02 05:53 | Day surgery (SDC) | payer MEDICARE ==
[2021-05-22 12:19] VITALS: BMI 33.2
--- NOTE | 2021-06-01 12:11 | HP ---
HISTORY AND PHYSICAL CHIEF COMPLAINT: Right knee pain. HISTORY OF PRESENT ILLNESS: Patient is a 75-year-old retired female who presents with progressive right knee pain for the past several years, worsening over the past several months. She notes her knee feels unstable, swells, and is painful. It severely limits her. She has tried activity modifications, anti-inflammatory medications, and exercise without much relief. PAST MEDICAL HISTORY: Significant for hyperlipidemia, hypothyroidism, gout, and arthritis. PAST SURGICAL HISTORY: Significant for left total hip arthroplasty and abdominal hernia repair. CURRENT MEDICATIONS: Aleve, simvastatin. ALLERGIES: SHE NOTES ALLERGIES TO NICKEL. FAMILY HISTORY: Significant for heart disease, and cancer. SOCIAL HISTORY: Negative for current tobacco or alcohol use. REVIEW OF SYSTEMS: Sixteen-point review of systems otherwise reviewed and is noncontributory. PHYSICAL EXAMINATION: On examination, the patient is approximately 5 feet tall, 170 pounds of endomorphic habitus. HEENT exam is nonfocal. Neck is supple. She has painless passive motion of the right hip. Straight leg raise is negative. Active motion right knee -10 to 118 degrees of flexion. She has a moderate effusion. She is tender about the medial joint line. Collaterals are stable, Valerie is negative, Sonny's is equivocal. She has genu varum alignment. She has an antalgic gait pattern. Her distal neurovascular exam appears intact in the right lower extremity. Weightbearing, notch, lateral, and Merchant views of the right knee obtained in the office show severe medial compartment narrowing with [id number] changes and subchondral sclerosis. IMPRESSION: Right knee severe medial compartment osteoarthrosis-symptomatic. RECOMMENDATIONS: I talked to the patient at length regarding her condition along with treatment options. At this point, she is quite symptomatic and limited because of pain related to her osteoarthrosis despite conservative measures. After thorough discussion, she opts to proceed with surgery. We will plan to proceed with right total knee arthroplasty. We will institute DVT prophylaxis postoperative. Risks and benefits were discussed at length in layman's terms. MMODL / IJN: [id number] /
[~2021-06-02 05:53] MED LIST changes: +ACETAMINOPHEN TAB 500 MG TAB PO PRN; +DEXAMETHASONE SOD PHOSPHATE 4 MG/ML 1 ML VIAL IV ONE; +MELOXICAM 7.5 MG TAB PO PRN; +ONDANSETRON 4 MG/2 ML VIAL IVP ONE; +ROPIVACAINE 246.25 MG, EPINEPHrine 0.5 MG, KETOROLAC (30 mg/mL) 30 MG, cloNIDine HCL/PF... MISCELLANE PRN; +TRANEXAMIC ACID 1,000 MG in SODIUM CHLORIDE 0.9% 100 ML IVPB PRN
[2021-06-02] MEDS ORDERED: HYDROmorphone 0.5 MG/0.5 ML SYRINGE IVP PRN ×2 (07:00→09:33)
[2021-06-02] MEDS ORDERED: MIDAZOLAM 2 MG/2 ML VIAL IVP ONE (07:08)
[2021-06-02] MEDS ORDERED: ROPIVACAINE 5 MG/ML 30 ML VIAL ONE (07:44)
[2021-06-02] MEDS ORDERED: PROPOFOL 10 MG/ML 20 ML VIAL IV ONE (07:44)
[2021-06-02] MEDS ORDERED: TRANEXAMIC ACID 1,000 MG/10 ML VIAL ONE (07:44)
[2021-06-02] MEDS ORDERED: HYDROmorphone (PF) 1 MG/ML ONE (07:44)
[2021-06-02] MEDS ORDERED: LIDOCAINE 1% INJ 10MG/ML (20 ML MDV) ONE (07:44)
[2021-06-02] MEDS ORDERED: .fentaNYL (PF) 50 MCG/ML 2 ML AMP ONE (07:44)
[2021-06-02] MEDS ORDERED: ROCURONIUM 10 MG/ML (5 ML VIAL) IV ONE (07:44)
[2021-06-02] MEDS ORDERED: SUCCINYLCHOLINE CHLORIDE 100 MG/5 ML SYR IV ONE (07:44)
[2021-06-02] MEDS ORDERED: SODIUM CHLORIDE 0.9% (PF) 10 ML VIAL ONE (07:44)
[2021-06-02] MEDS ORDERED: SODIUM CHLORIDE 0.9% 100 ML BAG ONE (07:44)
[2021-06-02] MEDS ORDERED: ceFAZolin 1,000 MG in SODIUM CHLORIDE 0.9% 1,000 ML IRRIGATION ONE (08:23)
[2021-06-02] MEDS ORDERED: NALOXONE 0.4 MG/ML 1 ML VIAL IV PRN (09:33)
[2021-06-02] MEDS ORDERED: HYDROcodone/APAP 7.5-325MG 1 EACH TAB PO PRN (09:33)
[2021-06-02] MEDS ORDERED: HYDROcodone/APAP 5-325MG 1 EACH TAB PO PRN (09:33)
[2021-06-02] MEDS ORDERED: LACTATED RINGERS 1,000 ML IV ONE (09:44)
--- NOTE | 2021-06-02 09:59 | P.OP ---
Date of Procedure: 06/02/21 Preoperative Diagnosis: Right knee severe tricompartmental osteoarthrosis Postoperative Diagnosis: Same Procedure(s) Performed: Right total knee arthroplastycruciate retainingcemented Implants: [employer] journey size 4 cemented femoral component, size 3 cemented tibial component, 11 mm articular surface, 29 mm cemented patellar component. This is a cruciate retaining implant. Anesthesia: [facility] Surgeon: Irineo Galvez Practice Advisor #1: Riaz Ramirez Estimated Blood Loss (ml): 50 Pathology: other (Bone fragments) Condition: stable Disposition: PACU Indications for Procedure: The patient's a 75-year-old female who presents with progressive right knee pain secondary to osteoarthrosis despite conservative measures. A discussion of the risks and benefits of operative intervention versus continued conservative augustus sures was made with the patient and she opted to proceed with surgery. Operative risks to include infection, neurovascular injury, development of blood clots, fracture, possible component loosening/failure need for subsequent procedures was discussed. Informed consent was obtained. Operative Findings: As below Description of Procedure: The patient was brought to the operating room, and after induction of spinal anesthesia the right lower extremity was prepped and draped in a normal fashion. The tourniquet was inflated to 270 mmHg. A longitudinal incision extending 3 finger breaths above the superior pole of the patella extending to the medial aspect the tibial tubercle was then made. The skin and subcutaneous tissues were divided sharply. Electrocautery was used for hemostasis. A medial parapatellar arthrotomy was then performed. The medial soft tissues to include the superficial and deep portions of the medial collateral ligament as well as the medial hamstring tendons were elevated subperiosteally. The proximal medial tibia osteophytes were carefully removed. The patella was everted. The knee was flexed. A portion of the retropatellar fat pad was excised sharply. The anterior cruciate ligament was sacrificed. A starting hole was made in the distal femur 1 cm anterior to the posterior cruciate origin. An intramedullary femoral guide was gently inserted planning on 5 valgus distal cut with 9 mm distal resection. The cutting block was pinned in place. The distal cut was then made. The posterior referencing sizing guide was utilized. 3 of external rotation was built into the system and verified off the trans- epicondylar axis and the posterior condyles. I felt size for was most appropriate. The cutting block was pinned in place. The anterior, posterior, and chamfer cuts were then made. The bone fragments were removed. A sulcus cut was then made with the appropriate guide. The trial size 4 femoral component was then placed and was fully seated. There was good anterior to posterior and medial to lateral fit. The distal peg holes were then drilled. The trial component was then removed. Attention was then paid towards preparing the proximal tibia. An extra medullary guide was utilized in line with the tibial shaft and second metatarsal distally. A 3 posterior slope was planned. I planned on 2 mm resection from the medial compartment. The cutting block was pinned in place. The proximal tibial cut was then made. The bone was removed in one fragment. The remnants of the medial and lateral menisci were excised the capsule junction with electrocautery. The tibia sized most appropriately at size 3. The posterior osteophytes off the distal femur were carefully removed with a curved osteotome. The trial tibial and femoral components were placed along with an 11 millimeters articular surface. I was able to obtain full flexion and extension with good stability with varus and valgus stress. After several flexion and extension cycles, the tibial rotation was marked with electrocautery in line with the medial one third of the tibial tubercle. Attention was then paid towards preparing the patella. A patella reamer was utilized taking this down to 14 mm of bone stock. A good flush cut was made. The patella sized most appropriately at 29 millimeters. The peg holes were then drilled. The trial component was placed. The knee was taken through a range of motion. I had good patellofemoral tracking with no hands technique. The trial components were then removed. The tibia was prepared in the appropriate rotation with appropriate drill and keel punch. The flexion and extension gaps were checked and felt to be symmetric. The bony surfaces were prepared with pulsatile lavage and dried. The deep tibial component was then cemented in place and was fully seated. Excess cement was removed. The femoral component was cemented in place and was fully seated. Again excess cement was removed. The trial 11 millimeters surface was then inserted in the knee was put in full extension. The patella component was cemented in place. After the cement had sufficiently hardened, the knee was again taken through a range of motion. Again there was good stability in flexion and extension with varus and valgus stress. The trial articular surface was then removed. The final articular surface was placed and was impacted. Care was taken to avoid any soft tissue interposition. Pulsatile lavage was again utilized. The tourniquet was deflated with approximately 60 minutes total tourniquet time. There was minimal drainage therefore a deep drain was not placed. The medial parapatellar arthrotomy was then closed with #2 Ethibond suture. The subcutaneous tissues were reapproximated interrupted 2-0 Vicryl sutures. The skin was reapproximated with 3-0 subarticular strata fix suture. Skin tape and adhesive was applied. A sterile dressing was applied. The patient was then awoken from sedation and transferred to recovery room in good condition. Blood loss was estimated at 50 milliliters. No complications were incurred. Sponge and needle counts were correct at the end the case. Riaz GERMAIN assisted during the major components this case to include exposure, bone resection, and implantation.
--- NOTE | 2021-06-02 10:05 | P.ANPRN ---
Procedure Note - Anesthesia - Nerve Block Performed Right Adductor Canal Infusion Time Out Performed: Yes Date of Procedure: 06/02/21 Location of Patient: PreOp Indication: Acute Post-Operative Pain, Analgesia, Requested by Surgeon Sedation Type: Sedate with meaningful contact maintained Preparation: Sterile Prep, Sterile Dressing Position: Supine Catheter Depth at Skin (cm): 9 Catheter: Indwelling Needle Types: Pajunk Needle Gauge: 20 Ultrasound used to visualize needle placement: Yes Injectate: 0.5% Ropivacaine (see comment for volume) Blood Aspirated: No Pain Paresthesia on Injection Noted: No Resistance on Injection: Normal Image Stored and Saved: Yes Events: Uneventful and Well Tolerated (20 ml of 0.5% Ropivacaine mixed with 20 ml of 09% Nacl - 20 ml of mixture injected on each side.)
--- NOTE | 2021-06-02 10:06 | P.ANPRN ---
Procedure Note - Anesthesia - Nerve Block Performed Right Aide Single Time Out Performed: Yes Date of Procedure: 06/09/21 Location of Patient: PreOp Indication: Acute Post-Operative Pain, Analgesia, Requested by Surgeon Sedation Type: Sedate with meaningful contact maintained Preparation: Sterile Prep Position: Supine Catheter: None Needle Types: Pajunk Needle Gauge: 20 Ultrasound used to visualize needle placement: Yes Ultrasound used to observe medication spread: Yes Injectate: 0.5% Ropivacaine (see comment for volume) Blood Aspirated: No Pain Paresthesia on Injection Noted: No Resistance on Injection: Normal Image Stored and Saved: Yes Events: Uneventful and Well Tolerated (20 ml of 0.5% Ropivacaine mixed with 20 ml of 09% Nacl - 20 ml of mixture injected on each block.)
[2021-06-02 10:08] VITALS: TEMP 97.8
--- NOTE | 2021-06-02 10:27 | XR ---
EXAMINATION TYPE: XR knee limited RT DATE OF EXAM: 06/02/2021 COMPARISON: NONE HISTORY: 75-year-old female evaluation for postoperative abnormality in alignment TECHNIQUE: 2 views FINDINGS: Images show placement of right total knee arthroplasty. Both distal femoral and proximal tibial compo nents of the prosthesis are well seated without periprosthetic fracture. Alignment grossly anatomic. There is anterior soft tissue swelling with soft tissue air as well as intra-articular air in joint f luid compatible with recent operation. Some minimal bony debris is present along the anterior aspect of the lateral compartment joint line. IMPRESSION: Uncomplicated postoperative appearance right total knee arthroplasty. Some minimal bony debris projec ts along the anterior margin of the lateral compartment joint line.
[2021-06-02] MEDS ORDERED: ROPIVACAINE 0.2%-NS ON-Q PUMP 1,090 MG, EMPTY PAIN BALL 1 EACH MISCELLANE PRN (10:35)
[2021-06-02 11:57] VITALS: RESP 18
[2021-06-02 13:18] VITALS: BP 148/78; PULSE 78
== END 2021-06-02 13:35 | disposition home health service (06) ==
LOC: OR 05:53
PROVIDERS: ATTEND Orthopaedic Surgery
DX: M17.11 Unilateral primary osteoarthritis, right knee (principal); E78.5 Hyperlipidemia, unspecified; E03.9 Hypothyroidism, unspecified; M10.9 Gout, unspecified; Z96.642 Presence of left artificial hip joint; Z98.890 Other specified postprocedural states; Z82.49 Family history of ischemic heart disease and other diseases of the circulatory system; Z80.9 Family history of malignant neoplasm, unspecified; Z79.1 Long term (current) use of non-steroidal anti-inflammatories (NSAID); Z91.048 Other nonmedicinal substance allergy status; Z79.899 Other long term (current) drug therapy
CPT/HCPCS: 97110; 97161; 64999; 64448; 76942; 88300; 73560; 27447; C1713 ×2; C1776; J2250; J1100; J0690 ×2; J2405; J2001; J3010; J1170; J2795; J0330; J2704

== ENCOUNTER → 2022-04-28 | Outpatient (CLI) | payer MEDICARE ==
--- NOTE | 2022-04-29 14:58 | MM ---
Reason for Exam: Screening (asymptomatic). Last mammogram was performed 1 year(s) and 1 month(s) ago. Patient History: Menarche at age 15. First Full-Term at age 21. Hysterectomy at age 40. Postmenopausal. 03/12/2019, Benign Core Biopsy on the left side. Risk Values: Barby 5 year model risk: 1.5%. NCI Lifetime model risk: 3.5%. Prior Study Comparison: 03/12/2019 Left Diagnostic Mammogram, [facility]. 04/10/2020 Bilateral Screening Mammogram, [facility]. 04/13/2021 Bilateral Screening Mammogram, [facility]. Tissue Density: There are scattered fibroglandular densities. Findings: Analyzed By CAD. Core marker is within the left breast. Benign vascular calcification is present bilaterally. No suspicious groups of microcalcifications, spiculated or lobular masses, architectural distortion or other secondary signs of malignancy are mammographically apparent. Overall Assessment: Benign, BI-RAD 2 Management: Screening Mammogram of both breasts in 1 year. A negative mammogram report should not preclude additional follow up of suspicious palpable abnormalities. Patient should continue monthly self breast exam. A clinical breast exam by your physician is recommended on an annual basis and results should be correlated with mammographic findings. Electronically signed and approved by: Naresh Medina D.O. Radiologis
== END | disposition home or self-care (01) ==
LOC: RADMAMWWP 14:48
PROVIDERS: ATTEND Family Medicine
DX: Z12.31 Encounter for screening mammogram for malignant neoplasm of breast (principal); Z78.0 Asymptomatic menopausal state; Z98.890 Other specified postprocedural states
CPT/HCPCS: 77063; 77067

== ENCOUNTER → 2023-05-06 | Outpatient (CLI) | payer MEDICARE ==
--- NOTE | 2023-05-09 08:57 | MM ---
Reason for Exam: Screening (asymptomatic). Last screening mammogram was performed 12 month(s) ago. Patient History: Menarche at age 15. First Full-Term at age 21. Hysterectomy at age 40. Postmenopausal. 03/12/2019, Benign Core Biopsy on the left side. Risk Values: Barby 5 year model risk: 1.5%. NCI Lifetime model risk: 3.3%. Prior Study Comparison: 04/10/2020 Bilateral Screening Mammogram, [facility]. 04/13/2021 Bilateral Screening Mammogram, [facility]. 04/28/2022 Bilateral MG 3D screening mammo w/cad, [facility]. Tissue Density: There are scattered fibroglandular densities. Findings: Analyzed By CAD. Spiculated mass right breast focal asymmetry right breast 8.6 cm from nipple measuring 13 mm on CC view and 7.9 cm from the nipple on MLO view. Overall Assessment: Incomplete: need additional imaging evaluation, BI-RAD 0 Management: Diagnostic Breast Ultrasound of both breasts. [facility] will attempt to contact patient to return for supplemental views and ultrasound if indicated. Patient should continue monthly self-breast exams. A clinical breast exam by your physician is recommended on an annual basis. This exam should not preclude additional follow-up of suspicious palpable abnormalities. Note on Barby scores and lifetime risk: 1. A Barby score greater than 3% is considered moderate risk. If this is the case, consider specialist referral to assess eligibility for a risk reducing agent. 2. If overall lifetime risk for the development of breast cancer is 20% or higher, the patient may qualify for future screening with alternating mammogram and breast MRI. Electronically signed and approved by: Edy Jhaveri DO
== END | disposition home or self-care (01) ==
LOC: RADMAMWWP 14:54
PROVIDERS: ATTEND Family Medicine
DX: Z00.00 Encounter for general adult medical examination without abnormal findings (principal); Z12.31 Encounter for screening mammogram for malignant neoplasm of breast; Z78.0 Asymptomatic menopausal state
CPT/HCPCS: 77063; 77067

== ENCOUNTER → 2023-05-16 | Outpatient (CLI) | payer MEDICARE ==
--- NOTE | 2023-05-16 11:52 | USB ---
Reason for Exam: Additional evaluation requested from abnormal screening. Patient History: Menarche at age 15. First Full-Term at age 21. Hysterectomy at age 40. Postmenopausal. 03/12/2019, Benign Core Biopsy on the left side. Risk Values: Barby 5 year model risk: 1.5%. NCI Lifetime model risk: 3.3%. Technique: Method: Targeted. Prior Study Comparison: 04/13/2021 Bilateral Screening Mammogram, [facility]. 04/28/2022 Bilateral MG 3D screening mammo w/cad, [facility]. 05/06/2023 Bilateral MG 3D screening mammo w/cad, [facility]. Findings: The upper outer quadrant of the right breast, the axilla of the right breast and the retroareolar of the right breast were scanned. Technique utilized:US breast workup limited RT Image; Ultrasound imaging of: Area of concern, retroareolar region and axilla. Irregular shaped,hypoechoic lesion with irregular margins measuring 14 x 11 x 11 mm at 10:00 is imaged from nipple. This is taller than wide. Overall Assessment: Highly suggestive of malignancy, BI-RAD 5 Management: Ultrasound Core Biopsy of the right breast. A clinical breast exam by your physician is recommended on an annual basis and results should be correlated with mammographic findings. This exam should not preclude additional follow-up of suspicious palpable abnormalities. Results were given to the patient verbally at the time of exam. Electronically signed and approved by: Edy Jhaveri DO
== END | disposition home or self-care (01) ==
LOC: RADUSWWP 11:03
PROVIDERS: ATTEND Family Medicine
DX: R92.8 Other abnormal and inconclusive findings on diagnostic imaging of breast (principal); Z78.0 Asymptomatic menopausal state

== ENCOUNTER → 2023-05-26 | Day surgery (SDC) | payer MEDICARE | LOC: RADUSWWP 12:43 | PROVIDERS: ATTEND Surgery | DX: C50.411 Malignant neoplasm of upper-outer quadrant of right female breast (principal); Z17.1 Estrogen receptor negative status [ER-] | CPT/HCPCS: 88305; 88342; 88341; 77065; 19083; A4648 ==

== ENCOUNTER → 2023-06-09 | Outpatient (CLI) | payer MEDICARE ==
--- NOTE | 2023-06-09 10:03 | P.GSHP ---
History of Present Illness H&P Date: 06/09/23 Chief Complaint: right breast invasive ductal cancer, [id number]+Her2-G2 Sugey is a 77 year old female with a biopsy proven (+) right breast cancer. She had a bilateral mammogramo on 05-06-23 which led to further work-up of the right breast leading to and ultrasound and diagnositic mammogram of that breast. She had a core biopsy on 05-26-23 of a 14 by 11 mm lesion at 10:00. This was (+) for an invasive ductal cancer, ER+WI+Her2-G2. She had a left breast core biopsy on 03-12-19 which was benign. She did not feel any lumps masses or nodules of concern in either breast. She does have tenderness in both breasts and would like to have an ultrasound done of the left breast as well. She is not complaining of any nipple discharge or skin changes. She's not had any recent trauma or infection in the breast. Caffiene: 3 cups/day nicotine: none BCP: for about 5 years chocolate: occasional Family History: paternal remote aunt: breast cancer Hormonal History: menarche: 15 , breast fed: no, age at first :21 menopause: hysterectomy at 40, left her ovaries Surgery: right arm right knee replacement hysterectony/appendectomy bilateral cataracts tubaligation Medical History: high cholesterol hypothyroid Social History: nicotine: none alcohol: none drugs: none - Constitutional Constitutional: Denies chills, Denies fever - EENT Eyes: denies blurred vision, denies pain Ears: deny: decreased hearing, tinnitus Ears, nose, mouth and throat: Denies headache, Denies sore throat - Breasts Breasts: bilateral: as per HPI - Cardiovascular Cardiovascular: Denies chest pain, Denies shortness of breath - Respiratory Respiratory: Denies cough, Denies 7 - Gastrointestinal Comment: H Pylori in the past and ulcer Gastrointestinal: Denies abdominal pain, Denies diarrhea, Denies nausea, Denies vomiting - Genitourinary (Female) Genitourinary: Denies dysuria, Denies hematuria - Menstruation Menstruation: Reports post hysterectomy - Musculoskeletal Musculoskeletal: Denies myalgias - Integumentary Integumentary: Denies pruritus, Denies rash - Neurological Neurological: Denies numbness, Denies weakness - Psychiatric Psychiatric: Denies anxiety, Denies depression - Endocrine Endocrine: Reports as per HPI - Hematologic/Lymphatic Comment: baby aspirin daily - Allergic/Immunologic Allergic/Immunologic: Reports seasonal allergies Past Medical History Past Medical History: Hyperlipidemia, Thyroid Disorder Additional Past Medical History / Comment(s): varicose veins, past hx migraines, fell 2015 & fx. right upper.occas vertigo, Dx. wit H pylori- has been on antbx. & re checking for this. History of Any Multi-Drug Resistant Organisms: None Reported Past Surgical History: Appendectomy, Hysterectomy, Orthopedic Surgery, Tubal Ligation Additional Past Surgical History / Comment(s): rectocele/cystocele repair, cataract surg, fx right arm-put a plate and screws in Past Anesthesia/Blood Transfusion Reactions: No Reported Reaction Additional Past Anesthesia/Blood Transfusion Reaction / Comment(s): occas vertigo Past Psychological History: No Psychological Hx Reported Smoking Status: Never smoker Past Alcohol Use History: None Reported Past Drug Use History: None Reported - Past Family History Father Family Medical History: Cancer Additional Family Medical History / Comment(s): Colon Sister(s) Family Medical History: Cancer Brother(s) Family Medical History: Deep Vein Thrombosis (DVT) Medications and Allergies Home Medications Medication Instructions Recorded Confirmed Type Aspirin 81 mg PO DAILY 04/19/14 05/18/23 History Levothyroxine Sodium [Synthroid] 50 mcg PO QAM 04/19/14 05/18/23 History Magnesium 250 mg PO DIRECTED 12/19/20 05/18/23 History Zinc 30 mg PO DIRECTED 12/19/20 05/18/23 History Omeprazole [PriLOSEC] 40 mg PO DAILY #90 cap 12/30/20 05/18/23 Rx Cholecalciferol [Vitamin D3 (25 25 mcg PO DAILY 05/22/21 05/18/23 History Mcg = 1000 Iu)] Multivit-Min/FA/Lycopen/Lutein 1 each PO DAILY 05/22/21 05/18/23 History [Centrum Silver Tablet] Rosuvastatin [Crestor] 20 mg PO 05/18/23 History Allergies Allergy/AdvReac Type Severity Reaction Status Date / Time adhesive Allergy RED Verified 05/18/23 10:17 IRRITATED SKIN nickel [Nickel] Allergy Rash/Hives Verified 05/18/23 10:17 Surgical - Exam - General no distress - Eyes normal ocular movement - Neck trachea midline - Respiratory normal respiratory effort, clear to auscultation - Cardiovascular Rhythm: regular Heart Sounds: normal: S1, S2 - Abdomen Abdomen: soft, non tender, no guarding, no rigid, no rebound - Integumentary normal turgor - Neurologic no disoriented, no combative - Musculoskeletal normal gait, normal posture - Psychiatric oriented to time, oriented to person, oriented to place, speech is normal, memory intact Breast Exam: BRA: 38DD Inspection: Mild ecchymosis lateral aspect of right breast, bilateral grade 3 ptosis Palpation: Right breast: Multiple positional exam fibrocystic changes no dominant masses or nodules of concern, examination under the area of the biopsy does reveal some mild fullness which could be consistent with the lesion versus a small hematoma Right axilla: No adenopathy of concern Left breast: Multiple positional exam no dominant masses or nodules of concern Left axilla: No adenopathy of concern Results Mammogram and ultrasound personally reviewed Assessment and Plan Assessment: Impression: 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
[2023-06-09 10:04] VITALS: BP 136/89; PULSE 83; RESP 18; TEMP 98
== END ==
LOC: WWCWWP 09:35
PROVIDERS: ATTEND Surgery
DX: C50.911 Malignant neoplasm of unspecified site of right female breast (principal); C50.912 Malignant neoplasm of unspecified site of left female breast; E03.9 Hypothyroidism, unspecified; E78.00 Pure hypercholesterolemia, unspecified; G43.909 Migraine, unspecified, not intractable, without status migrainosus; Z17.0 Estrogen receptor positive status [ER+]; Z79.890 Hormone replacement therapy; Z80.3 Family history of malignant neoplasm of breast; Z79.82 Long term (current) use of aspirin; Z91.048 Other nonmedicinal substance allergy status; Z91.09 Other allergy status, other than to drugs and biological substances

== ENCOUNTER → 2023-06-17 | Outpatient (CLI) | payer MEDICARE ==
--- NOTE | 2023-06-17 15:01 | USB ---
Reason for Exam: Clinical finding. Patient History: Menarche at age 15. First Full-Term at age 21. Hysterectomy at age 40. Postmenopausal. Breast cancer, right, age 77. 05/26/2023, Malignant US biopsy breast VAD RT on the right side. 03/12/2019, Benign Core Biopsy on the left side. Technique: Method: Whole Breast Handheld. Prior Study Comparison: 04/28/2022 Bilateral MG 3D screening mammo w/cad, [facility]. 05/06/2023 Bilateral MG 3D screening mammo w/cad, [facility]. 05/26/2023 Right MG diagnostic mammo RT wo CAD, [facility]. Findings: The whole breast of the left breast, the axilla of the left breast and the retroareolar of the left breast were scanned. A complete US of all four quadrants of the breast, axilla, and retro-areolar region were reviewed. There is a benign flattened cyst measuring 1.2 x 0.3 cm at the 3:00 position, 9 cm from the nipple. The previously o'clock biopsy site is no longer identified. No solid or cystic masses are identified. No axillary lymphadenopathy. Overall Assessment: Known biopsy proven malignancy, BI-RAD 6 Management: Surgical Consultation of the right breast. Continue with planned surgical and oncologic management of the right breast. Results were given to the patient verbally at the time of exam. Electronically signed and approved by: Shoshana Tello M.D. Radiologist
== END | disposition home or self-care (01) ==
LOC: RADUSWWP 14:11
PROVIDERS: ATTEND Surgery
DX: N60.02 Solitary cyst of left breast (principal); Z78.0 Asymptomatic menopausal state; Z85.3 Personal history of malignant neoplasm of breast

== ENCOUNTER → 2023-06-21 | Outpatient (CLI) | payer MEDICARE | END | disposition home or self-care (01) | LOC: LABWHC1 08:54 | PROVIDERS: ATTEND Nurse Practitioner | DX: Z01.812 Encounter for preprocedural laboratory examination (principal); N63.10 Unspecified lump in the right breast, unspecified quadrant | CPT/HCPCS: 87070 ==

== ENCOUNTER 2023-06-28 07:36 | Day surgery (SDC) | payer MEDICARE ==
[~2023-06-28 07:36] MED LIST changes: -ACETAMINOPHEN TAB 500 MG TAB PO PRN; +HEPARIN SODIUM,PORCINE 5,000 UNIT/ML 1 ML VIAL SQ PRN; +HYDROmorphone 0.5 MG/0.5 ML SYRINGE IVP PRN; -MELOXICAM 7.5 MG TAB PO PRN; -ROPIVACAINE 246.25 MG, EPINEPHrine 0.5 MG, KETOROLAC (30 mg/mL) 30 MG, cloNIDine HCL/PF... MISCELLANE PRN; -TRANEXAMIC ACID 1,000 MG in SODIUM CHLORIDE 0.9% 100 ML IVPB PRN
[2023-06-28] MEDS ORDERED: ALPRAZolam 0.25 MG TAB ONE (08:42)
[2023-06-28] MEDS ORDERED: ALPRAZolam 0.25 MG TAB PO ONE ×2 (08:43→08:51)
[2023-06-28] MEDS ORDERED: LIDOCAINE 1% INJ 10MG/ML (20 ML MDV) SQ ONE (09:32)
--- NOTE | 2023-06-28 12:27 | P.NAPBC ---
NAPBC Queries - NAPBC Queries Was patient's case review presented at [facility] tumor board? If no, comment.: Yes Was patient's pathology reviewed at [facility]? If no, comment.: Yes Was breast conservation surgery offered? If no, comment.: Yes Was sentinel node biopsy offered? If no, comment.: Yes Was diagnosis confirmed by percutaneous core biopsy? If no, comment.: Yes Is patient mastectomy patient?: No Was a preop referral to reconstructive surgeon offered?: No Clinical Stage: stage IA right breast invasive ductal cancer; [id number]+Pr+Her2-G2
[2023-06-28] MEDS ORDERED: HYDROmorphone (PF) 1 MG/ML ONE (14:31)
[2023-06-28] MEDS ORDERED: fentaNYL (PF) 50 MCG/ML 2 ML AMP ONE (14:31)
[2023-06-28] MEDS ORDERED: PROPOFOL 10 MG/ML 20 ML VIAL IV ONE (14:31)
[2023-06-28] MEDS ORDERED: LIDOCAINE 1% INJ 10MG/ML (20 ML MDV) ONE (14:31)
[2023-06-28] MEDS ORDERED: MIDAZOLAM 2 MG/2 ML VIAL ONE (14:31)
[2023-06-28] MEDS ORDERED: LACTATED RINGERS 500 ML IV ONE (14:36)
[2023-06-28] MEDS ORDERED: METHYLENE BLUE 50 MG/10 ML AMPUL INJ ONE (14:51)
[2023-06-28] MEDS ORDERED: LACTATED RINGERS 1,000 ML IV ONE (15:39)
--- NOTE | 2023-06-28 15:52 | NM ---
EXAMINATION TYPE: NM sentinel node injection DATE OF EXAM: 06/28/2023 COMPARISON: NONE INDICATION: Abnormal mammogram. Informed consent was obtained. A timeout was performed. The area around the right nipple was cleansed with alcohol. In a single dose, a total of 480 uCi Te chnetium 99m Tilmanocept was injected. The patient tolerated the procedure very well. IMPRESSION: 1. Successful injection for sentinel node evaluation.
--- NOTE | 2023-06-28 16:09 | P.OP ---
Date of Procedure: 06/28/23 Preoperative Diagnosis: Invasive ductal carcinoma right breast Postoperative Diagnosis: Same Procedure(s) Performed: Right breast needle localization lumpectomy, right axillary lymphatic mapping, right sentinel node biopsy, right onco-plastic tissue transfer 39 cm Anesthesia: RAIMUNDOA Surgeon: Jenna Mary Estimated Blood Loss (ml): 10 IV fluids (ml): 800 Pathology: other (Breast tissue and axillary tissue) Condition: stable Disposition: same day Indications for Procedure: Right breast invasive ductal carcinoma Operative Findings: Right breast fibrofatty tissue, right axillary tissue fibrofatty Description of Procedure: The patient was seen first in the radiology suite where needle localization of the area of concern in the right breast was performed. Additionally the tracer was placed in the periareolar region. The patient was then brought to the operative suite. Following induction of anesthesia the neoprobe was used to interrogate the axilla. Minimal radioactivity was identified. Methylene blue half percent was injected in the periareolar region and the breast was massaged for 5 minutes. Following this the right breast and axilla were prepped and draped in a sterile fashion. The right axilla was approached. Using the neoprobe and area of radioactivity was identified and an incision was made. Incision was carried into the deep axillary tissue. The tissue was grasped using an Allis clamp. A blue lymph node which was also radioactive was identified. This was resected using the Harmonic scalpel. The 10 second count on the lymph node was 1359. The 10 second count on the background axilla was 18. No additional radioactive or blue lymph nodes were identified. No palpable nodes of concern were identified. The axillary wound was irrigated. The deep tissues were closed using 3-0 Vicryl suture. The skin was closed using 4-0 Monocryl. The area of the breast was approached. An incision was made and carried down to the shaft of the needle. This tissue was grasped using an Allis clamp. Surrounding tissue was excised. The size of the tissue excised was 6 x 4 cm. The specimen was painted for orientation. Radiograph revealed the area of concern had been removed. An inferior pillar 5 by 3 cm was created. A superior pillar 5 x 2 cm was created. The inferior and superior pillars were brought together using 3-0 Vicryl suture. Total tissue transfer was 49 cm. Titanium clips were placed prior to closing the pillars. Surgicel in powder form was placed. The subcutaneous tissue was closed using 3-0 Vicryl suture. The skin was closed using 4-0 Monocryl. Surgical glue was placed. The patient tolerated the procedure in stable condition. All instrument and sponge counts were correct at the end of the case.
[2023-06-28 16:40] VITALS: TEMP 97.3
[2023-06-28 17:02] VITALS: RESP 16
[2023-06-28 18:33] VITALS: BP 152/74; PULSE 84
--- NOTE | 2023-07-06 14:08 | MM ---
Reason for Exam: Post Procedure Mammogram. Last screening mammogram was performed 2 month(s) ago. Patient History: Menarche at age 15. First Full-Term at age 21. Hysterectomy at age 40. Postmenopausal. Breast cancer, right, age 77. 05/26/2023, Malignant US biopsy breast VAD RT on the right side. 03/12/2019, Benign Core Biopsy on the left side. Prior Study Comparison: 04/28/2022 Bilateral MG 3D screening mammo w/cad, [facility]. 05/06/2023 Bilateral MG 3D screening mammo w/cad, [facility]. 05/26/2023 Right MG diagnostic mammo RT wo CAD, [facility]. Tissue Density: Right: There are scattered fibroglandular densities. Pathology Description: Location: 10 o'clock. Needle Type: 7 cm Kopan The needle localization procedure with wire placement for surgical excision was explained to the patient. Benefits, alternatives, and risks were discussed. An informed consent was then obtained. A timeout was performed. The overlying skin was prepped in usual sterile fashion. Lidocaine was used as anesthetic into the skin and subcutaneous tissue up to the level of area of concern. A 7 cm needle was used. It was placed using a lateral approach under ultrasound guidance. The wire was placed and the needle was withdrawn. The wire was fixed to patient's skin. Images were reviewed with surgeon surgery. The patient tolerated the procedure well without any immediate complication. The patient was kept in the radiology department for short stay after the procedure and then taken to surgery for surgical excision. Specimen: Biopsy marker and wire are identified in specimen mammogram. Impression: 1. Successful needle localization with wire placement and surgical excision of biopsy marker. Pathology Results: Result: Malignant, Invasive ductal carcinoma. A. RIGHT SENTINEL LYMPH NODE: Three lymph nodes negative for metastasis. CK7 immunostain performed on block A1, MARY BETH immunostain performed on block A2 and CKAE1/3 immunostain performed on block A3 are confirmatory (controls appropriate). B. RIGHT BREAST, LUMPECTOMY: Invasive moderately differentiated ductal carcinoma (Grade 2) and focal low grade DCIS, margins negative for invasive malignancy and DCIS. See Surgical Pathology Cancer Case Summary. Overall Assessment: Malignant Assessment: MG diagnostic mammo RT wo CAD - Right: Known biopsy proven malignancy, BI-RAD 6. Management: Surgical Consultation of the right breast. Electronically signed and approved by: Naresh Medina D.O. Radiologis
== END 2023-06-28 18:30 | disposition home or self-care (01) ==
LOC: OR 07:36
PROVIDERS: ATTEND Surgery
DX: D05.11 Intraductal carcinoma in situ of right breast (principal); E03.9 Hypothyroidism, unspecified; G43.909 Migraine, unspecified, not intractable, without status migrainosus; K21.9 Gastro-esophageal reflux disease without esophagitis; K44.9 Diaphragmatic hernia without obstruction or gangrene; I83.90 Asymptomatic varicose veins of unspecified lower extremity; Z90.710 Acquired absence of both cervix and uterus; Z98.51 Tubal ligation status; Z96.651 Presence of right artificial knee joint; Z98.890 Other specified postprocedural states; Z80.0 Family history of malignant neoplasm of digestive organs; Z80.3 Family history of malignant neoplasm of breast; Z79.82 Long term (current) use of aspirin; Z79.890 Hormone replacement therapy; Z79.899 Other long term (current) drug therapy
CPT/HCPCS: 19301; 14001; 38900; 38525; 88342; 88307; 88341; 77065; 76098; 76999; 19285; 38792; C1819; A9520; J2250; J1644; J1100; J0690; J2405; J2001; J3010; J1170 ×2; J2704; Q9968

== ENCOUNTER → 2023-07-07 | Outpatient (CLI) | payer MEDICARE ==
--- NOTE | 2023-07-07 14:55 | P.PN ---
Progress Note - Text Progress Note Date: 07/07/23 Sugey is a 77 year old female statu [ost right breast lumpectomy and SNB on 06-28-23. Tumor 12 mm all margins (-). Three nodes all (-). This is not complaining of any fever or chills. Examination: This: Clear Heart: Regular rate and rhythm Incision: Clean and dry axillary Breast incision is clean and dry with some mild erythema at the medial aspect of the incision Impression: Patient doing well at this time Plan: Appointment radiation oncology Appointment medical oncology Follow-up here in 1 week to follow mild erythema of the heel aspect of the incision CC: Waqar Keita
[2023-07-07 15:02] VITALS: BP 181/82; PULSE 76; RESP 18; TEMP 98.6
== END ==
LOC: WWCWWP 14:15
PROVIDERS: ATTEND Surgery
DX: Z90.11 Acquired absence of right breast and nipple (principal); Z91.048 Other nonmedicinal substance allergy status; Z91.09 Other allergy status, other than to drugs and biological substances; Z79.82 Long term (current) use of aspirin

== ENCOUNTER → 2023-08-15 | Outpatient (CLI) | payer MEDICARE ==
--- NOTE | 2023-08-15 16:59 | BD ---
EXAMINATION TYPE: Axial Bone Density DATE OF EXAM: 08/15/2023 CLINICAL HISTORY: 78 years old Female. ICD-10 CODE: M85.88 DISORDER OF BONE Height: 60 Weight: 182.8 FRAX RISK QUESTIONS: Alcohol (3 or more units per day): no Family History (Parent hip fracture): no Glucocorticoids (More than 3mos): no (Ex: prednisone, prednisolone, methylprednisolone, dexamethasone, and hydrocortisone). History of Fracture in Adulthood: yes Secondary Osteoporosis: 1. Type 1 Diabetes: no 2. Hyperthyroidism: no 3. Menopause before 45: yes 4. Malnutrition: no 5. Chronic liver disease: no Rheumatoid Arthritis: no Current Tobacco Use: no RISK FACTORS HISTORY OF: Surgery to Spine/Hip(right/left)/Wrist (right/left): no MEDICATIONS: Thyroid Medications: levothyroxine How Lon years EXAM MEASUREMENTS: Bone mineral densitometry was performed using the [employer] System. Bone mineral density as measured about the Lumbar spine is: ----- L1-L4(G/cm2): 1.006 T Score Values are as follows: ----- L1: -1.5 ----- L2: -2.1 ----- L3: -1.3 ----- L4: -1.1 ----- L1-L4: -1.4 Z Score Values are as follows: ----- L1: -0.3 ----- L2: -0.9 ----- L3: -0.2 ----- L4: 0.1 ----- L1-L4: -0.3 Bone mineral density has: decreased -6.8 % since study of: 06.28.2011 Bone mineral density about the R hip (g/cm2): 0.767 Bone mineral density about the L hip (g/cm2): 0.855 T Score values are as follows: -----R Neck: -1.8 -----L Neck: -1.8 -----R Total: -1.9 -----L Total: -1.2 Z Score values are as follows: -----R Neck: -0.2 -----L Neck: -0.2 -----R Total: -0.6 -----L Total: 0.1 Bone mineral density has: decreased -9.7 % since study of: 1.9.2012 FRAX%s: The graph provided illustrates a 17.8% chance for a major osteoporotic fx and a 3.8% chance f or the hips probability for fx in 10 years time. IMPRESSION: Osteopenia (T Score between -2.5 and -1). There is slightly increased risk of fracture and the patient may be considered for treatment. Re-Screen 2-5 years. NOTE: T-SCORE=SD OF THE YOUNG ADULT MEAN.
== END | disposition home or self-care (01) ==
LOC: RADBDWWP 10:28
PROVIDERS: ATTEND Internal Medicine
DX: Z13.820 Encounter for screening for osteoporosis (principal); M85.89 Other specified disorders of bone density and structure, multiple sites
CPT/HCPCS: 77080

== ENCOUNTER 2024-02-09 11:00 | Day surgery (SDC) | payer MEDICARE ==
[2024-02-09] MEDS ORDERED: LIDOCAINE 1% INJ 10MG/ML (20 ML MDV) ONE (11:10)
[2024-02-09] MEDS ORDERED: PROPOFOL 10 MG/ML 20 ML VIAL IV ONE (11:10)
[2024-02-09] MEDS ORDERED: LACTATED RINGERS 1,000 ML BAG ONE (11:10)
--- NOTE | 2024-05-03 05:53 | P.GSHP ---
History of Present Illness H&P Date: 02/09/24 CHIEF COMPLAINT: GERD and colon screen HISTORY OF PRESENT ILLNESS: The patient is a 78-year-old female who presents with gastroesophageal reflux disease and need for colon screen. Upper and lower endoscopy were offered for further evaluation and management. PAST MEDICAL HISTORY: Please see list. PAST SURGICAL HISTORY: Please see list. MEDICATIONS: Please see list. ALLERGIES: Please see list. SOCIAL HISTORY: No illicit drug use FAMILY HISTORY: No reports of Crohn disease or ulcerative colitis. REVIEW OF ORGAN SYSTEMS: CONSTITUTIONAL: No reports of fevers or chills. GI: Denies any blood in stools or constipation. PHYSICAL EXAM: VITAL SIGNS: Stable GENERAL: Well-developed pleasant in no acute distress. HEENT: No scleral icterus. Extraocular movements grossly intact. Moist buccal mucosa. NECK: Supple without lymphadenopathy. CHEST: Unlabored respirations. Equal bilateral excursions. CARDIOVASCULAR: Regular rate and rhythm. Distal 2+ pulses. ABDOMEN: Soft, nondistended. MUSCULOSKELETAL: No clubbing, cyanosis, or edema. ASSESSMENT: 1. Gastroesophageal reflux disease 2. Colon screen. PLAN: 1. Recommend proceeding with an upper and lower endoscopy Past Medical History Past Medical History: Cancer, GERD/Reflux, Hyperlipidemia, Thyroid Disorder Additional Past Medical History / Comment(s): varicose veins, past hx migraines, occas vertigo, past H pylori, gastric ulcer/healed, hiatal hernia. History of Any Multi-Drug Resistant Organisms: None Reported Past Surgical History: Appendectomy, Hysterectomy, Joint Replacement, Orthopedic Surgery, Tubal Ligation Additional Past Surgical History / Comment(s): L breast biopsy, rectocele/cystocele repair, cataract surg, total R knee arthroplasty, fx right arm-put a plate and screws in Past Anesthesia/Blood Transfusion Reactions: No Reported Reaction Additional Past Anesthesia/Blood Transfusion Reaction / Comment(s): occas vertigo Past Psychological History: No Psychological Hx Reported Smoking Status: Never smoker Past Alcohol Use History: None Reported Past Drug Use History: None Reported - Past Family History Father Family Medical History: Cancer Additional Family Medical History / Comment(s): Colon Sister(s) Family Medical History: Cancer Additional Family Medical History / Comment(s): Lung cancer with mets. Brother(s) Family Medical History: Deep Vein Thrombosis (DVT) Medications and Allergies Home Medications Medication Instructions Recorded Confirmed Type Aspirin 81 mg PO QAM 04/19/14 04/09/24 History Levothyroxine Sodium [Synthroid] 50 mcg PO QAM 04/19/14 04/09/24 History Magnesium 125 mg PO Q48H 12/19/20 04/09/24 History Zinc 30 mg PO Q48H 12/19/20 04/09/24 History Cholecalciferol [Vitamin D3 (25 25 mcg PO QAM 05/22/21 04/09/24 History Mcg = 1000 Iu)] Multivit-Min/FA/Lycopen/Lutein 1 each PO QAM 05/22/21 04/09/24 History [Centrum Silver Tablet] Rosuvastatin [Crestor] 20 mg PO QAM 05/18/23 04/09/24 History Calcium Carbonate/Vitamin D3 2 tab PO QAM 06/22/23 04/09/24 History [Calcium 600 mg-D3 20 mcg (800 unit)] Omeprazole [PriLOSEC] 40 mg PO QAM 06/22/23 04/09/24 History Anastrozole [Arimidex] 1 mg PO DAILY 04/09/24 04/09/24 History Spironolactone [Aldactone] 70 mg PO WEEKLY 04/09/24 04/09/24 History Cephalexin [Keflex] 500 mg PO Q12HR 10 Days #20 cap 04/13/24 04/20/24 Rx Allergies Allergy/AdvReac Type Severity Reaction Status Date / Time adhesive Allergy RED Verified 04/12/24 23:19 IRRITATED SKIN nickel [Nickel] Allergy Rash/Hives Verified 04/12/24 23:19
--- NOTE | 2024-05-03 05:56 | P.PCN ---
Date of Procedure: 02/09/24 Description of Procedure: PREOPERATIVE DIAGNOSIS: Gastroesophageal reflux disease. Diaphragmatic hiatal hernia POSTOPERATIVE DIAGNOSIS: Gastroesophageal reflux disease. Gastritis. Diaphragmatic hiatal hernia OPERATION: Esophagogastroduodenoscopy with biopsies along esophagus, antrum and duodenum SURGEON: Jenifer Shen MD ANESTHESIA: MAC. INDICATIONS: The patient is a 78-year-old female who presents with reflux disease. Benefits and risks of the procedure were described. Informed consent was obtained. DESCRIPTION: The patient was brought into the endoscopy suite and laid in the left lateral decubitus position. An Olympus gastroscope was passed along the posterior oropharynx down to the distal esophagus where the squamocolumnar junction was encountered at 34 cm from the incisors. The stomach was entered and no bile reflux was found. Additional findings are listed below. Biopsies with cold forceps were obtained of the antrum. The first through third portion of the duodenum was examined. Retroflexion of the scope confirmed Hill grade 3 lower esophageal valve. The squamocolumnar junction demonstrated LA grade B erosive esophagitis. The stomach was desufflated. The patient tolerated the procedure well. FINDINGS: Squamocolumnar junction 34 cm from the incisors. Diaphragmatic hiatus at 38 cm. Hiatal hernia, 4 cm Hill grade 3 lower esophageal valve. LA grade B erosive esophagitis. Biopsies obtained of the duodenum. Chronic gastritis with biopsies obtained. RECOMMENDATIONS: Recommend diaphragmatic hiatal hernia repair Upper endoscopy as needed.
--- NOTE | 2024-05-03 06:00 | P.PCN ---
Date of Procedure: 02/09/24 Description of Procedure: PREOPERATIVE DIAGNOSIS: Personal history of colon polyps Colonoscopy screening POSTOPERATIVE DIAGNOSIS: Tubular adenoma cecum Internal hemorrhoids, grade 2 OPERATION: Colonoscopy to the ileocecal valve and appendiceal orifice, cecum Colonoscopy with cold forcep biopsy SURGEON: Jenifer Shen MD. ANESTHESIA: MAC. INDICATIONS: The patient is an 78-year-old female who presents personal history of colon polyps. Last colonoscopy 5 years. Benefits and risks were described and informed consent was obtained. DESCRIPTION OF PROCEDURE: The patient had undergone Sutab prep. The patient had been brought into the operating room and laid in the left lateral decubitus position. After adequate intravenous sedation, the rectum was examined with 2% lidocaine jelly. The prostate was unremarkable. External hemorrhoids were encountered. The rectal tone was within normal limits. No lesions were palpated in the rectal vault. An Olympus colonoscope was advanced until the cecum, ileocecal valve and appendiceal orifice were clearly viewed. The prep was good. No large sigmoid diverticulosis was encountered. Colonic polyps were found and removed. No evidence of focal colitis was found. Retroflexion of the scope demonstrated grade 2 internal hemorrhoids without active bleeding or inflammation. The colon was desufflated. The patient had tolerated the procedure well. Withdrawal time was over 6 minutes. FINDINGS: Aronchick preparation quality scale 2 (1-5) Internal hemorrhoids, grade 2 External hemorrhoids, grade 2. No arteriovenous malformations. No large sigmoid diverticulosis Removal of 1 polyp: - Cold forceps biopsy at cecum, 5 mm adenoma No focal colitis. RECOMMENDATIONS: Repeat colonoscopy in 3 years, 2026 Plan - Discharge Summary New Discharge Prescriptions: No Action Levothyroxine Sodium [Synthroid] 50 mcg PO QAM Aspirin 81 mg PO QAM Zinc 30 mg PO Q48H Anastrozole [Arimidex] 1 mg PO DAILY Cephalexin [Keflex] 500 mg PO Q12HR 10 Days #20 cap Magnesium 125 mg PO Q48H Cholecalciferol [Vitamin D3 (25 Mcg = 1000 Iu)] 25 mcg PO QAM Multivit-Min/FA/Lycopen/Lutein [Centrum Silver Tablet] 1 each PO QAM Rosuvastatin [Crestor] 20 mg PO QAM Omeprazole [PriLOSEC] 40 mg PO QAM Calcium Carbonate/Vitamin D3 [Calcium 600 mg-D3 20 mcg (800 unit)] 2 tab PO QAM Spironolactone [Aldactone] 70 mg PO WEEKLY Discharge Medication List Aspirin 81 mg PO QAM 04/19/14 [History] Levothyroxine Sodium [Synthroid] 50 mcg PO QAM 04/19/14 [History] Magnesium 125 mg PO Q48H 12/19/20 [History] Zinc 30 mg PO Q48H 12/19/20 [History] Cholecalciferol [Vitamin D3 (25 Mcg = 1000 Iu)] 25 mcg PO QAM 05/22/21 [History] Multivit-Min/FA/Lycopen/Lutein [Centrum Silver Tablet] 1 each PO QAM 05/22/21 [History] Rosuvastatin [Crestor] 20 mg PO QAM 05/18/23 [History] Calcium Carbonate/Vitamin D3 [Calcium 600 mg-D3 20 mcg (800 unit)] 2 tab PO QAM 06/22/23 [History] Omeprazole [PriLOSEC] 40 mg PO QAM 06/22/23 [History] Anastrozole [Arimidex] 1 mg PO DAILY 04/09/24 [History] Spironolactone [Aldactone] 70 mg PO WEEKLY 04/09/24 [History] Cephalexin [Keflex] 500 mg PO Q12HR 10 Days #20 cap 04/13/24 [Rx]
== END 2024-02-09 12:40 ==
LOC: ORWHC2ENDO 11:00
PROVIDERS: ATTEND Surgery Plastic and Reconstructive Surgery
DX: Z12.11 Encounter for screening for malignant neoplasm of colon (principal); K29.50 Unspecified chronic gastritis without bleeding; D12.0 Benign neoplasm of cecum; E78.5 Hyperlipidemia, unspecified; G47.33 Obstructive sleep apnea (adult) (pediatric); E03.9 Hypothyroidism, unspecified; K44.9 Diaphragmatic hernia without obstruction or gangrene; K64.1 Second degree hemorrhoids; K21.00 Gastro-esophageal reflux disease with esophagitis, without bleeding; Z90.49 Acquired absence of other specified parts of digestive tract; Z79.82 Long term (current) use of aspirin; Z79.899 Other long term (current) drug therapy; Z79.890 Hormone replacement therapy; Z90.710 Acquired absence of both cervix and uterus; Z96.651 Presence of right artificial knee joint; Z91.041 Radiographic dye allergy status; Z91.048 Other nonmedicinal substance allergy status; Z86.010 Personal history of colon polyps
CPT/HCPCS: 88305; 45380; 43239; J2001; J2704

== ENCOUNTER 2024-02-12 03:44 | Emergency (ER) | payer MEDICARE ==
[2024-02-12 03:51] VITALS: BP 189/96; PULSE 75; RESP 18; TEMP 98.3
--- NOTE | 2024-02-12 04:07 | ED ---
Female Urogenital HPI - General Chief complaint: Urogenital Stated complaint: Hematuria Time Seen by Provider: 02/12/24 03:50 Source: patient, RN notes reviewed, old records reviewed Mode of arrival: ambulatory Limitations: no limitations - History of Present Illness Initial comments: This is a 78-year-old female to the ER today. This patient presents today for evaluation regards to dysuria with increased urinary frequency. Significant blood in the ER with no abdominal pain, positive dysuria positive burning with urination. No fevers MD Complaint: dysuria, pelvic pain -: days(s) Location: suprapubic Severity: moderate Severity scale (1-10): 6 Quality: stabbing Consistency: constant, intermittent Improves with: urination Worsens with: none - Related Data Home Medications Medication Instructions Recorded Confirmed Aspirin 81 mg PO QAM 04/19/14 07/07/23 Levothyroxine Sodium [Synthroid] 50 mcg PO QAM 04/19/14 07/07/23 Magnesium 125 mg PO Q48H 12/19/20 07/07/23 Zinc 30 mg PO Q48H 12/19/20 07/07/23 Cholecalciferol [Vitamin D3 (25 25 mcg PO QAM 05/22/21 07/07/23 Mcg = 1000 Iu)] Multivit-Min/FA/Lycopen/Lutein 1 each PO QAM 05/22/21 07/07/23 [Centrum Silver Tablet] Rosuvastatin [Crestor] 20 mg PO QAM 05/18/23 07/07/23 Calcium Carbonate/Vitamin D3 1 tab PO QAM 06/22/23 07/07/23 [Calcium 600 mg-D3 20 mcg (800 unit)] Omeprazole [PriLOSEC] 40 mg PO QAM 06/22/23 07/07/23 Previous Rx's Medication Instructions Recorded HYDROcodone/APAP 5-325MG [[place] 5] 1 - 2 each PO Q6HR PRN #10 tab 06/28/23 Amoxic-Pot Clav 875-125Mg 1 tab PO Q12HR #14 tablet 02/12/24 [Augmentin 875-125] Allergies Allergy/AdvReac Type Severity Reaction Status Date / Time adhesive Allergy RED Verified 02/12/24 03:51 IRRITATED SKIN nickel [Nickel] Allergy Rash/Hives Verified 02/12/24 03:51 Review of Systems ROS Statement: Those systems with pertinent positive or pertinent negative responses have been documented in the HPI. ROS Other: All systems not noted in ROS Statement are negative. Past Medical History Past Medical History: Cancer, GERD/Reflux, Hyperlipidemia, Thyroid Disorder Additional Past Medical History / Comment(s): varicose veins, past hx migraines, occas vertigo, past H pylori, gastric ulcer/healed, hiatal hernia. History of Any Multi-Drug Resistant Organisms: None Reported Past Surgical History: Appendectomy, Hysterectomy, Joint Replacement, Orthopedic Surgery, Tubal Ligation Additional Past Surgical History / Comment(s): L breast biopsy, rectocele/cystocele repair, cataract surg, total R knee arthroplasty, fx right arm-put a plate and screws in Past Anesthesia/Blood Transfusion Reactions: No Reported Reaction Additional Past Anesthesia/Blood Transfusion Reaction / Comment(s): occas vertigo Past Psychological History: No Psychological Hx Reported Smoking Status: Never smoker Past Alcohol Use History: None Reported Past Drug Use History: None Reported - Past Family History Father Family Medical History: Cancer Additional Family Medical History / Comment(s): Colon Sister(s) Family Medical History: Cancer Additional Family Medical History / Comment(s): Lung cancer with mets. Brother(s) Family Medical History: Deep Vein Thrombosis (DVT) General Exam Limitations: no limitations General appearance: alert, in no apparent distress Head exam: Present: atraumatic, normocephalic, normal inspection Eye exam: Present: normal appearance, PERRL, EOMI. Absent: scleral icterus, conjunctival injection, periorbital swelling ENT exam: Present: normal exam, mucous membranes moist Neck exam: Present: normal inspection. Absent: tenderness, meningismus, lymphadenopathy Respiratory exam: Present: normal lung sounds bilaterally. Absent: respiratory distress, wheezes, rales, rhonchi, stridor Cardiovascular Exam: Present: regular rate, normal rhythm, normal heart sounds. Absent: systolic murmur, diastolic murmur, rubs, gallop, clicks GI/Abdominal exam: Present: soft, normal bowel sounds. Absent: distended, tenderness, guarding, rebound, rigid Extremities exam: Present: normal inspection, full ROM, normal capillary refill. Absent: tenderness, pedal edema, joint swelling, calf tenderness Back exam: Present: normal inspection Neurological exam: Present: alert, oriented X3, CN II-XII intact Psychiatric exam: Present: normal affect, normal mood Skin exam: Present: warm, dry, intact, normal color. Absent: rash Course Vital Signs 02/12/24 03:50 Temperature 98.3 F Pulse Rate 75 Respiratory 18 Rate Blood Pressure 189/96 O2 Sat by Pulse 99 Oximetry - Reevaluation(s) Reevaluation #1: 02/12/24 04:04 Medical records reviewed. Reevaluation #2: 02/12/24 04:04 Symptoms unchanged Reevaluation #3: 02/12/24 04:04 10 results questions answered Reevaluation #4: Was pt. sent in by a medical professional or institution (, PA, PHARMACY RESOURCE TECH, urgent care, hospital, or intermediate...) When possible be specific @ -no Did you speak to anyone other than the patient for history (EMS, parent, family, police, friend...)? What history was obtained from this source @ -no Did you review nursing and triage notes (agree or disagree)? Why? @ -agree Are old charts reviewed (outside hosp., previous admission, EMS record, old EKG, old radiological studies, urgent care reports/EKG's, intermediate records)? Report findings @ -yes Differential Diagnosis (chest pain, altered mental status, abdominal pain women, abdominal pain men, vaginal bleeding, weakness, fever, dyspnea, syncope, headache, dizziness, GI bleed, back pain, seizure, CVA, palpatations, mental health, musculoskeletal)? @ -prior EKG interpreted by me (3pts min.). @ -no X-rays interpreted by me (1pt min.). @ -no CT interpreted by me (1pt min.). @ -no U/S interpreted by me (1pt. min.). @ -no What testing was considered but not performed or refused? (CT, X-rays, U/S, labs)? Why? @ -none What meds were considered but not given or refused? Why? @ -none Did you discuss the management of the patient with other professionals (professionals i.e. , PA, PHARMACY RESOURCE TECH, lab, RT, psych nurse, social scientist, hall clerk, teacher, asset protection officer, case management manager)? Give summary @ -no Was smoking cessation discussed for >3mins.? @ -no Was critical care preformed (if so, how long)? @ -no Were there social determinants of health that impacted care today? How? (Homelessness, low income, unemployed, alcoholism, drug addiction, trans portation, low edu. Level, literacy, decrease access to med. care, [place] [facility], rehab)? @ -none Was there de-escalation of care discussed even if they declined (Discuss DNR or withdrawal of care, Hospice)? DNR status @ -no What co-morbidities impacted this encounter? (DM, HTN, Smoking, COPD, CAD, Cancer, CVA, ARF, Chemo, Hep., AIDS, mental health diagnosis, sleep apnea, morbid obesity)? @ -none Was patient admitted / discharged? Hospital course, mention meds given and route, prescriptions, significant lab abnormalities, going to OR and other pertinent info. @ - 78 Female positive UTI placed on antibiotics and can be discharged home Discharge Undiagnosed new problem with uncertain prognosis? @ -no Drug Therapy requiring intensive monitoring for toxicity (Heparin, Nitro, Insulin, Cardizem)? @ -no Were any procedures done? @ -no Diagnosis/symptom? @ -Hematuria with UTI Acute, or Chronic, or Acute on Chronic? @ -Acute Uncomplicated (without systemic symptoms) or Complicated (systemic symptoms)? @ -Complicated Side effects of treatment? @ -no Exacerbation, Progression, or Severe Exacerbation? @ -exacerbation Poses a threat to life or bodily function? How? (Chest pain, [place], ND, pneumonia, PE, COPD, DKA, ARF, appy, cholecystitis, CVA, Diverticulitis, Homicidal, Suicidal, threat to staff... and all critical care pts) @ -yes extremes of age Reevaluation #5: Differential Abdominal Pain Women: Appendicitis, Cholecystitis, diverticulosis, ischemic bowel, pancreatitis, hepatitis, UTI, gastroenteritis, AAA, incarcerated hernia, bowel obstruction, constipation, inflammatory bowel, hepatitis, peptic ulcer disease, splenic infarction, perforated viscus, vulvitis, ovarian torsion, PID, kidney stone, placenta abruption, this is not meant to be an all-inclusive list Medical Decision Making - Medical Decision Making 78 Female positive UTI placed on antibiotics and can be discharged home - Lab Data Lab Results 02/12/24 Range/Units 04:12 Urine Color Light Red Urine Appearance Cloudy H (Clear) Urine pH 7.0 (5.0-8.0) Ur Specific [place] 1.010 (1.001-1.035) Urine Protein 1+ H (Negative) Urine Glucose (UA) Negative (Negative) Urine Ketones Negative (Negative) Urine Blood Large H (Negative) Urine Nitrite Negative (Negative) Urine Bilirubin Negative (Negative) Urine Urobilinogen <2.0 (<2.0) mg/dL Ur Leukocyte Esterase Large H (Negative) Urine RBC >182 H (0-5) /hpf Urine WBC >182 H (0-5) /hpf Ur Squamous Epith Cells 1 (0-4) /hpf Urine Bacteria Few H (None) /hpf Hyaline Casts 6 H (0-2) /lpf Urine Mucus Rare H (None) /hpf Disposition Clinical Impression: Urinary tract infection, Hematuria Disposition: HOME SELF-CARE Instructions (If sedation given, give patient instructions): Urinary Tract Infection in Women (ED), Hematuria (ED) Prescriptions: Amoxic-Pot Clav 875-125Mg [Augmentin 875-125] 1 tab PO Q12HR #14 tablet Is patient prescribed a controlled substance at d/c from ED?: No Referrals: None,Stated [Primary Care Provider] - 1-2 days Time of Disposition: 04:10
[2024-02-12] MEDS: PHENAZOPYRIDINE 100 MG TAB PO STA (04:10)
[2024-02-12] MEDS: AMOXIC-POT CLAV 875MG STARTER PACK 2 TAB BTL PO STA (04:21)
[2024-02-12] MEDS: AMOXIC-POT CLAV 875-125MG 1 EACH TAB PO STA (04:21)
[2024-02-12 05:59] LABS: Appearance,Urine Cloudy (Clear); Bacteria,Urine Few /hpf; Bilirubin,Urine Negative (Negative); Blood,Urine Large (Negative); Color,Urine Light Red; Glucose,Urine (UA) Negative (Negative); Hyaline Casts,Urine 6 /lpf (0-2); Ketones,Urine Negative (Negative); Leukocyte Esterase,Urine Large (Negative); Mucus,Urine Rare /hpf; Nitrite,Urine Negative (Negative); Protein,Urine 1+ (Negative); RBC,Urine >182 /hpf (0-5); Squamous Epithelial Cell,Urine 1 /hpf (0-4); Urobilinogen,Urine <2.0 mg/dL (<2.0); WBC,Urine >182 /hpf (0-5)
== END 2024-02-12 04:35 | disposition home or self-care (01) ==
LOC: EC 03:44
DX: N39.0 Urinary tract infection, site not specified (principal); Z88.8 Allergy status to other drugs, medicaments and biological substances; Z90.49 Acquired absence of other specified parts of digestive tract
CPT/HCPCS: 81001; 87077; 87086; 87186; 99283

== ENCOUNTER → 2024-03-06 | Outpatient (CLI) | payer MEDICARE ==
[2024-03-06 08:30] VITALS: BP 173/79; PULSE 77; RESP 17; TEMP 98.6
--- NOTE | 2024-03-06 08:55 | P.PN ---
Subjective Progress Note Date: 03/06/24 Principal diagnosis: right breast stage I IDC [id number] Chief Complaint: right breast invasive ductal cancer, [id number]+Pr+Her2-G2 Sugey is a 77 year old female with a biopsy proven (+) right breast cancer. She had a bilateral mammogramo on 05-06-23 which led to further work-up of the right breast leading to and ultrasound and diagnositic mammogram of that breast. She had a core biopsy on 05-26-23 of a 14 by 11 mm lesion at 10:00. This was (+) for an invasive ductal cancer, ER+UT+Her2-G2. She had a left breast core biopsy on 03-12-19 which was benign. She did not feel any lumps masses or nodules of concern in either breast. Breast lumpectomy and sentinel node biopsy in 06-28-2023. Since that time she has not had some swelling at the postoperative site. She has not had any fever or chills. She has completed a course of radiation therapy. An ultrasound was done of the right breast on 02-15-2024 this revealed a thick-walled fluid collection most consistent with a postoperative seroma in the 9 to 10 o'clock position. 06-28-23 she underwent a right breast lumpectomy and SNB. Pathology G2 1.2 cm lesion (-) margins, 3 nodes all (-). oncotype: 24 presently on annestrazole 16 fractions of radiation therapy finishing in August 2023 note medical oncology reviewed from 03-05-24 Caffiene: 3 cups/day nicotine: none BCP: for about 5 years chocolate: occasional Family History: paternal remote aunt: breast cancer Hormonal History: menarche: 15 , breast fed: no, age at first :21 menopause: hysterectomy at 40, left her ovaries Surgery: right arm right knee replacement hysterectony/appendectomy bilateral cataracts tubaligation Medical History: high cholesterol hypothyroid Social History: nicotine: none alcohol: none drugs: none - Constitutional Constitutional: Denies chills, Denies fever - EENT Eyes: denies blurred vision, denies pain Ears: deny: decreased hearing, tinnitus Ears, nose, mouth and throat: Denies headache, Denies sore throat - Breasts Breasts: bilateral: as per HPI - Cardiovascular Cardiovascular: Denies chest pain, Denies shortness of breath - Respiratory Respiratory: Denies cough - Gastrointestinal Comment: H Pylori in the past and ulcer Gastrointestinal: Denies abdominal pain, Denies diarrhea, Denies nausea, Denies vomiting - Genitourinary (Female) Genitourinary: Denies dysuria, Denies hematuria - Menstruation Menstruation: Reports post hysterectomy - Musculoskeletal Musculoskeletal: Denies myalgias - Integumentary Integumentary: Denies pruritus, Denies rash - Neurological Neurological: Denies numbness, Denies weakness - Psychiatric Psychiatric: Denies anxiety, Denies depression - Endocrine Endocrine: Reports as per HPI - Hematologic/Lymphatic Comment: baby aspirin daily - Allergic/Immunologic Allergic/Immunologic: Reports seasonal allergies Past Medical History Past Medical History: Hyperlipidemia, Thyroid Disorder Additional Past Medical History / Comment(s): varicose veins, past hx migraines, fell 2015 & fx. right upper.occas vertigo, Dx. wit H pylori- has been on antbx. & re checking for this. History of Any Multi-Drug Resistant Organisms: None Reported Past Surgical History: Appendectomy, Hysterectomy, Orthopedic Surgery, Tubal Ligation Additional Past Surgical History / Comment(s): rectocele/cystocele repair, cataract surg, fx right arm-put a plate and screws in Past Anesthesia/Blood Transfusion Reactions: No Reported Reaction Additional Past Anesthesia/Blood Transfusion Reaction / Comment(s): occas vertigo Past Psychological History: No Psychological Hx Reported Smoking Status: Never smoker Past Alcohol Use History: None Reported Past Drug Use History: None Reported - Past Family History Father Family Medical History: Cancer Additional Family Medical History / Comment(s): Colon Sister(s) Family Medical History: Cancer Brother(s) Family Medical History: Deep Vein Thrombosis (DVT) Medications and Allergies Home Medications Medication Instructions Recorded Confirmed Type Aspirin 81 mg PO DAILY 04/19/14 05/18/23 History Levothyroxine Sodium [Synthroid] 50 mcg PO QAM 04/19/14 05/18/23 History Magnesium 250 mg PO DIRECTED 12/19/20 05/18/23 History Zinc 30 mg PO DIRECTED 12/19/20 05/18/23 History Omeprazole [PriLOSEC] 40 mg PO DAILY #90 cap 12/30/20 05/18/23 Rx Cholecalciferol [Vitamin D3 (25 25 mcg PO DAILY 05/22/21 05/18/23 History Mcg = 1000 Iu)] Multivit-Min/FA/Lycopen/Lutein 1 each PO DAILY 05/22/21 05/18/23 History [Centrum Silver Tablet] Rosuvastatin [Crestor] 20 mg PO 05/18/23 History Allergies Allergy/AdvReac Type Severity Reaction Status Date / Time adhesive Allergy RED Verified 05/18/23 10:17 IRRITATED SKIN nickel [Nickel] Allergy Rash/Hives Verified 05/18/23 10:17 Objective - Vital Signs Vital signs: Vital Signs Temp 98.6 F 03/06/24 08:28 Pulse 77 03/06/24 08:28 Resp 17 03/06/24 08:28 BP 173/79 03/06/24 08:28 Pulse Ox 97 03/06/24 08:28 FiO2 Intake & Output 03/05/24 03/06/24 03/06/24 18:59 06:59 18:59 Weight 80.286 kg - Constitutional General appearance: Present: cooperative - EENT Eyes: Present: EOMI ENT: Present: hearing grossly normal - Neck Neck: Present: normal ROM - Respiratory Respiratory: bilateral: CTA - Cardiovascular Heart sounds: normal: S1, S2 - Integumentary Integumentary: Present: normal turgor - Musculoskeletal Musculoskeletal: Present: gait normal - Psychiatric Psychiatric: Present: A&O x's 3, appropriate affect, intact judgment & insight - Additional findings Additional findings: Breast Exam: BRA: 38DD Inspection: post op changes right breast, bilateral grade 3 ptosis Palpation: Right breast: Multi- positional exam fibrocystic changes no dominant masses or nodules of concern, post op changes, probable seroma right breast Right axilla: No adenopathy of concern Left breast: Multiple positional exam no dominant masses or nodules of concern Left axilla: No adenopathy of concern Assessment and Plan Assessment: Impression: Right breast stage I invasive ductal carcinoma/status post lumpectomy/radiation therapy/patient presently on anastrozole/Oncotype 24 no chemotherapy, diagnosed 2022 Seroma right breast Plan: Aspiration seroma Continue to follow with medical oncology Continue to follow with radiation oncology Mammogram with follow-up after this in March 2024 Following informed consent the area of concern in the right breast was prepped using alcohol. An 18-gauge needle on a 20 cc syringe was inserted into the area of fullness in the upper outer quadrant of the breast. Approximately 50 cc of straw-colored fluid was removed with complete resolution of the seroma. The patient tolerated the procedure in stable condition. The patient will have a bilateral mammogram in March 2024 with an appointment at that time CC; Dr. Bautista
== END ==
LOC: WWCWWP 08:20
PROVIDERS: ATTEND Surgery
DX: Z48.817 Encounter for surgical aftercare following surgery on the skin and subcutaneous tissue (principal); C50.911 Malignant neoplasm of unspecified site of right female breast; N64.89 Other specified disorders of breast; Z80.3 Family history of malignant neoplasm of breast; Z17.0 Estrogen receptor positive status [ER+]; Z91.09 Other allergy status, other than to drugs and biological substances; Z91.048 Other nonmedicinal substance allergy status

== ENCOUNTER → 2024-04-09 | Outpatient (CLI) | payer MEDICARE ==
--- NOTE | 2024-04-09 08:34 | MM ---
Reason for Exam: Additional evaluation requested from prior study. Last screening mammogram was performed 11 month(s) ago. Patient History: Menarche at age 15. First Full-Term at age 21. Hysterectomy at age 40. Postmenopausal. Breast cancer, right, age 77. 06/28/2023, Lumpectomy on the Right side. 06/28/2023, US breast surgical speciment RT on the Right side. 06/28/2023, Malignant US breast localization RT on the right side. 05/26/2023, Malignant US biopsy breast VAD RT on the right side. 03/12/2019, Benign Core Biopsy on the left side. Prior Study Comparison: 02/14/2018 Bilateral Screening Mammogram, [facility]. 02/16/2019 Bilateral Screening Mammogram, [facility]. 03/12/2019 Left Diagnostic Mammogram, [facility]. 04/10/2020 Bilateral Screening Mammogram, [facility]. 04/13/2021 Bilateral Screening Mammogram, [facility]. 04/28/2022 Bilateral MG 3D screening mammo w/cad, [facility]. 05/06/2023 Bilateral MG 3D screening mammo w/cad, [facility]. 05/26/2023 Right MG diagnostic mammo RT wo CAD, [facility]. 06/28/2023 Right MG diagnostic mammo RT wo CAD, [facility]. Tissue Density: There are scattered areas of fibroglandular density. Findings: Analyzed By CAD. There is a 5.4 cm round circumscribed mass at the site of the patient's position. Surgical clips are present. Given the circumscribed margin and history of previous seroma aspiration, recurrent seroma is suspected. Scattered benign bilateral vascular calcifications and secretory calcifications on the left. Microclip left breast from prior biopsy. Otherwise, no significant change. Overall Assessment: Incomplete: need additional imaging evaluation, BI-RAD 0 Management: Diagnostic Breast Ultrasound of the right breast. Upper outer quadrant to confirm seroma. Results were given to the patient verbally at the time of exam. [facility], , 04/09/2024 8:31 AM. Electronically signed and approved by: Shoshana Tello M.D. Radiologist
--- NOTE | 2024-04-09 08:50 | USB ---
Reason for Exam: Clinical finding. Patient History: Menarche at age 15. First Full-Term at age 21. Hysterectomy at age 40. Postmenopausal. Breast cancer, right, age 77. 06/28/2023, Lumpectomy on the Right side. 06/28/2023, US breast surgical speciment RT on the Right side. 06/28/2023, Malignant US breast localization RT on the right side. 05/26/2023, Malignant US biopsy breast VAD RT on the right side. 03/12/2019, Benign Core Biopsy on the left side. Technique: Method: Targeted. Prior Study Comparison: 05/06/2023 Bilateral MG 3D screening mammo w/cad, [facility]. 05/26/2023 Right MG diagnostic mammo RT wo CAD, [facility]. 06/28/2023 Right MG diagnostic mammo RT wo CAD, [facility]. Findings: The upper outer quadrant of the right breast, the area of palpable concern of the right breast, the axilla of the right breast and the retroareolar of the right breast were scanned. Targeted ultrasound of the patient's palpable site 10:00 position right breast 5 cm from the nipple shows a 5.3 x 4.4 x 3.5 cm cyst containing low level echoes/debris. In addition, there is a mural based irregular thickening along the anterior wall mural based nodularity measuring up to 1.8 cm. Likely clumped up debris and granulation tissue. Ultrasound can provide symptomatic relief as well as cytology assessment to confirm benign seroma. Overall Assessment: Suspicious, BI-RAD 4 Management: Aspiration of the right breast. Percutaneous ultrasound-guided aspiration for suspected recurrent seroma. Fluid can be sent for cytology given the mural based nodularity (suspected to represent clumped up debris and granulation tissue). Results were given to the patient verbally at the time of exam. [facility], , 04/09/2024 8:46 AM. Electronically signed and approved by: Shoshana Tello M.D. Radiologist
== END | disposition home or self-care (01) ==
LOC: RADMAMWWP 07:58
PROVIDERS: ATTEND Radiology Radiation Oncology
DX: C50.411 Malignant neoplasm of upper-outer quadrant of right female breast
CPT/HCPCS: 77062; 77066

== ENCOUNTER 2024-04-12 23:14 | Emergency (ER) | payer MEDICARE ==
[2024-04-13 00:11] LABS: Appearance,Urine Cloudy (Clear); Bacteria,Urine Rare /hpf; Bilirubin,Urine Negative (Negative); Blood,Urine Large (Negative); Color,Urine Colorless; Glucose,Urine (UA) Negative (Negative); Ketones,Urine Negative (Negative); Leukocyte Esterase,Urine Large (Negative); Nitrite,Urine Negative (Negative); Protein,Urine 1+ (Negative); RBC,Urine 129 /hpf (0-5); Specific Gravity,Urine 1.007 (1.001-1.035); Squamous Epithelial Cell,Urine 1 /hpf (0-4); Urobilinogen,Urine <2.0 mg/dL (<2.0); WBC,Urine 61 /hpf (0-5)
--- NOTE | 2024-04-13 00:40 | ED ---
Female Urogenital HPI - General Chief complaint: Urogenital Stated complaint: Bladder Infection Time Seen by Provider: 04/12/24 23:47 Source: patient Mode of arrival: ambulatory - History of Present Illness Initial comments: 78-year-old female presenting with chief complaint of "I think I have a UTI". Patient started having dysuria and increased frequency earlier today. Then lat er this evening she noticed blood in her urine which prompted her to come to the ER. She is having suprapubic discomfort. No flank pain, fever, chills, nausea, vomiting. No history of kidney stones. - Related Data Home Medications Medication Instructions Recorded Confirmed Aspirin 81 mg PO QAM 04/19/14 04/09/24 Levothyroxine Sodium [Synthroid] 50 mcg PO QAM 04/19/14 04/09/24 Magnesium 125 mg PO Q48H 12/19/20 04/09/24 Zinc 30 mg PO Q48H 12/19/20 04/09/24 Cholecalciferol [Vitamin D3 (25 25 mcg PO QAM 05/22/21 04/09/24 Mcg = 1000 Iu)] Multivit-Min/FA/Lycopen/Lutein 1 each PO QAM 05/22/21 04/09/24 [Centrum Silver Tablet] Rosuvastatin [Crestor] 20 mg PO QAM 05/18/23 04/09/24 Calcium Carbonate/Vitamin D3 2 tab PO QAM 06/22/23 04/09/24 [Calcium 600 mg-D3 20 mcg (800 unit)] Omeprazole [PriLOSEC] 40 mg PO QAM 06/22/23 04/09/24 Anastrozole [Arimidex] 1 mg PO DAILY 04/09/24 04/09/24 Spironolactone [Aldactone] 70 mg PO WEEKLY 04/09/24 04/09/24 Previous Rx's Medication Instructions Recorded Cephalexin [Keflex] 500 mg PO Q12HR 10 Days #20 cap 04/13/24 Allergies Allergy/AdvReac Type Severity Reaction Status Date / Time adhesive Allergy RED Verified 04/12/24 23:19 IRRITATED SKIN nickel [Nickel] Allergy Rash/Hives Verified 04/12/24 23:19 Review of Systems ROS Statement: Those systems with pertinent positive or pertinent negative responses have been documented in the HPI. ROS Other: All systems not noted in ROS Statement are negative. Past Medical History Past Medical History: Cancer, GERD/Reflux, Hyperlipidemia, Thyroid Disorder Additional Past Medical History / Comment(s): varicose veins, past hx migraines, occas vertigo, past H pylori, gastric ulcer/healed, hiatal hernia. Right breast cancer 2022 History of Any Multi-Drug Resistant Organisms: None Reported Past Surgical History: Appendectomy, Hysterectomy, Joint Replacement, Orthopedic Surgery, Tubal Ligation Additional Past Surgical History / Comment(s): L breast biopsy, rectocele/cystocele repair, cataract surg, total R knee arthroplasty, fx right arm-put a plate and screws in. Right breast lumpectomy/radiation. Past Anesthesia/Blood Transfusion Reactions: No Reported Reaction Additional Past Anesthesia/Blood Transfusion Reaction / Comment(s): occas vertigo Past Psychological History: No Psychological Hx Reported Smoking Status: Never smoker Past Alcohol Use History: None Reported Past Drug Use History: None Reported - Past Family History Father Family Medical History: Cancer Additional Family Medical History / Comment(s): Colon Sister(s) Family Medical History: Cancer Additional Family Medical History / Comment(s): Lung cancer with mets. Brother(s) Family Medical History: Deep Vein Thrombosis (DVT) General Exam General appearance: alert, in no apparent distress Head exam: Present: atraumatic, normocephalic, normal inspection Eye exam: Present: normal appearance, EOMI Neck exam: Present: normal inspection. Absent: meningismus Respiratory exam: Absent: respiratory distress Cardiovascular Exam: Present: regular rate Back exam: Absent: CVA tenderness (R), CVA tenderness (L) Neurological exam: Present: alert, oriented X3 Psychiatric exam: Present: normal affect, normal mood Skin exam: Present: warm, dry Course Vital Signs 04/12/24 04/13/24 23:16 01:20 Temperature 98.2 F 98.1 F Pulse Rate 78 74 Respiratory 18 16 Rate Blood Pressure 205/77 160/84 O2 Sat by Pulse 99 98 Oximetry Medical Decision Making - Medical Decision Making Was pt. sent in by a medical professional or institution (, PA, CEMENTER MACHINE, urgent care, hospital, or half-way...) When possible be specific @ -No Did you speak to anyone other than the patient for history (EMS, parent, family, police, friend...)? What history was obtained from this source @ -No Did you review nursing and triage notes (agree or disagree)? Why? @ -I reviewed and agree with nursing and triage notes Were old charts reviewed (outside hosp., previous admission, EMS record, old EKG, old radiological studies, urgent care reports/EKG's, half-way records)? Report findings @ -No old charts were reviewed Differential Diagnosis (chest pain, altered mental status, abdominal pain women, abdominal pain men, vaginal bleeding, weakness, fever, dyspnea, syncope, headache, dizziness, GI bleed, back pain, seizure, CVA, palpatations, mental health, musculoskeletal)? @ -Differential includes UTI, pyelonephritis, kidney stone, this is not an all- inclusive list EKG interpreted by me (3pts min.). @ -As above X-rays interpreted by me (1pt min.). @ -None done CT interpreted by me (1pt min.). @ -None done U/S interpreted by me (1pt. min.). @ -None done What testing was considered but not performed or refused? (CT, X-rays, U/S, labs)? Why? @ -None What meds were considered but not given or refused? Why? @ -None Did you discuss the management of the patient with other professionals (professionals i.e. , PA, CEMENTER MACHINE, lab, RT, psych nurse, medical social worker, lease broker, teacher, special weapons and tactics officer, housing case manager)? Give summary @ -No Was smoking cessation discussed for >3mins.? @ -No Was critical care preformed (if so, how long)? @ -No Were there social determinants of health that impacted care today? How? (Homelessness, low income, unemployed, alcoholism, drug addiction, transportation, low edu. Level, literacy, decrease access to med. care, fdc, rehab)? @ -No Was there de-escalation of care discussed even if they declined (Discuss DNR or withdrawal of care, Hospice)? DNR status @ -No What co-morbidities impacted this encounter? (DM, HTN, Smoking, COPD, CAD, Ca ncer, CVA, ARF, Chemo, Hep., AIDS, mental health diagnosis, sleep apnea, morbid obesity)? @ -None Was patient admitted / discharged? Hospital course, mention meds given and route, prescriptions, significant lab abnormalities, going to OR and other pertinent info. @ -78-year-old female presenting with chief complaint of dysuria, suprapubic pain, frequency, and hematuria. Patient is initially hypertensive, states that she gets quite nervous at medical facilities. Urine shows evidence of UTI with large leukocytes and large blood. Patient will be treated with Keflex, first dose is given here in the ER. She is educated on today's findings and treatment plan. Discharged. Follow-up with PCP. Report back to ER with any new or worsening symptoms. Discussed return parameters and answered all questions. Patient conveyed verbal understanding and agreed to the plan. I discussed this case in detail with my attending Dr. Yuan Undiagnosed new problem with uncertain prognosis? @ -No Drug Therapy requiring intensive monitoring for toxicity (Heparin, Nitro, Insulin, Cardizem)? @ -No Were any procedures done? @ -No Diagnosis/symptom? @ -UTI Acute, or Chronic, or Acute on Chronic? @ -Acute Uncomplicated (without systemic symptoms) or Complicated (systemic symptoms)? @ -Uncomplicated Side effects of treatment? @ -No Exacerbation, Progression, or Severe Exacerbation? @ -No Poses a threat to life or bodily function? How? (Chest pain, [place], NM, pneumonia, PE, COPD, DKA, ARF, appy, cholecystitis, CVA, Diverticulitis, Homicidal, Suicidal, threat to staff... and all critical care pts) @ -Potential if not properly treated, however no immediate threat at this time - Lab Data Lab Results 04/12/24 Range/Units 23:23 Urine Color Colorless Urine Appearance Cloudy H (Clear) Urine pH 7.0 (5.0-8.0) Ur Specific [place] 1.007 (1.001-1.035) Urine Protein 1+ H (Negative) Urine Glucose (UA) Negative (Negative) Urine Ketones Negative (Negative) Urine Blood Large H (Negative) Urine Nitrite Negative (Negative) Urine Bilirubin Negative (Negative) Urine Urobilinogen <2.0 (<2.0) mg/dL Ur Leukocyte Esterase Large H (Negative) Urine RBC 129 H (0-5) /hpf Urine WBC 61 H (0-5) /hpf Urine WBC Clumps Few H (None) /hpf Ur Squamous Epith Cells 1 (0-4) /hpf Urine Bacteria Rare H (None) /hpf Disposition Clinical Impression: Urinary tract infection Disposition: HOME SELF-CARE Condition: Good Instructions (If sedation given, give patient instructions): Urinary Tract Infection in Women (ED) Additional Instructions: Follow-up with PCP. Report back to ER with any new or worsening symptoms. Prescriptions: Cephalexin [Keflex] 500 mg PO Q12HR 10 Days #20 cap Is patient prescribed a controlled substance at d/c from ED?: No Referrals: None,Stated [Primary Care Provider] - 1-2 days Time of Disposition: 00:40
[2024-04-13] MEDS: CEPHALEXIN 500 MG CAP PO STA (01:14)
[2024-04-13 01:26] VITALS: BP 160/84; PULSE 74; RESP 16; TEMP 98.1
== END 2024-04-13 01:26 | disposition home or self-care (01) ==
LOC: EC 23:14
CPT/HCPCS: 81001; 87077; 87086; 87186; 99283

== ENCOUNTER → 2024-04-23 | Day surgery (SDC) | payer MEDICARE | LOC: RADUSWWP 12:46 | PROVIDERS: ATTEND Surgery | DX: N63.0 Unspecified lump in unspecified breast (principal); Z85.3 Personal history of malignant neoplasm of breast | CPT/HCPCS: 77065; 76942; 19000; A4648; 88173; 88305 ==

== ENCOUNTER → 2024-05-03 | Outpatient (CLI) | payer MEDICARE ==
[2024-05-03 10:14] VITALS: BP 183/80; PULSE 87; RESP 18; TEMP 98.8
--- NOTE | 2024-05-03 10:44 | P.PN ---
Subjective Progress Note Date: 05/03/24 05-03-24 Principal diagnosis: right breast stage I IDC 2022, nodulatity UOQ left breast on exam Chief Complaint: right breast invasive ductal cancer, [id number]+Pr+Her2-G2 Sugey is a 78 year old female with a biopsy proven (+) right breast cancer. She had a bilateral mammogramo on 05-06-23 which led to further work-up of the right breast leading to and ultrasound and diagnositic mammogram of that breast. She had a core biopsy on 05-26-23 of a 14 by 11 mm lesion at 10:00. This was (+) for an invasive ductal cancer, ER+AZ+Her2-G2. She had a left breast core biopsy on 03-12-19 which was benign. She did not feel any lumps masses or nodules of c oncern in either breast. Breast lumpectomy and sentinel node biopsy in 06-28-2023. Since that time she has had some swelling at the postoperative site. She has not had any fever or chills. She has completed a course of radiation therapy. An ultrasound was done of the right breast on 02-15-2024 this revealed a thick-walled fluid collection most consistent with a postoperative seroma in the 9 to 10 o'clock position. The patient on 03-06-24 had 50 cc seroma aspirate at lumpectomy site, the radiologist also did an aspiration 2 weeks ago and 45 cc removed from the right breast. 06-28-23 she underwent a right breast lumpectomy and SNB. Pathology G2 1.2 cm lesion (-) margins, 3 nodes all (-). oncotype: 24 presently on annestrazole 16 fractions of radiation therapy finishing in August 2023 note medical oncology reviewed from 03-05-24 Caffiene: 3 cups/day nicotine: none BCP: for about 5 years chocolate: occasional Family History: paternal remote aunt: breast cancer Hormonal History: menarche: 15 , breast fed: no, age at first :21 menopause: hysterectomy at 40, left her ovaries Surgery: right arm right knee replacement hysterectony/appendectomy bilateral cataracts tubaligation Medical History: high cholesterol hypothyroid Social History: nicotine: none alcohol: none drugs: none - Constitutional Constitutional: Denies chills, Denies fever - EENT Eyes: denies blurred vision, denies pain Ears: deny: decreased hearing, tinnitus Ears, nose, mouth and throat: Denies headache, Denies sore throat - Breasts Breasts: bilateral: as per HPI - Cardiovascular Cardiovascular: Denies chest pain, Denies shortness of breath - Respiratory Respiratory: Denies cough - Gastrointestinal Comment: H Pylori in the past and ulcer Gastrointestinal: Denies abdominal pain, Denies diarrhea, Denies nausea, Denies vomiting - Genitourinary (Female) Genitourinary: Denies dysuria, Denies hematuria - Menstruation Menstruation: Reports post hysterectomy - Musculoskeletal Musculoskeletal: Denies myalgias - Integumentary Integumentary: Denies pruritus, Denies rash - Neurological Neurological: Denies numbness, Denies weakness - Psychiatric Psychiatric: Denies anxiety, Denies depression - Endocrine Endocrine: Reports as per HPI - Hematologic/Lymphatic Comment: baby aspirin daily - Allergic/Immunologic Allergic/Immunologic: Reports seasonal allergies Past Medical History Past Medical History: Hyperlipidemia, Thyroid Disorder Additional Past Medical History / Comment(s): varicose veins, past hx migraines, fell 2015 & fx. right upper.occas vertigo, Dx. wit H pylori- has been on antbx. & re checking for this. History of Any Multi-Drug Resistant Organisms: None Reported Past Surgical History: Appendectomy, Hysterectomy, Orthopedic Surgery, Tubal Ligation Additional Past Surgical History / Comment(s): rectocele/cystocele repair, cataract surg, fx right arm-put a plate and screws in Past Anesthesia/Blood Transfusion Reactions: No Reported Reaction Additional Past Anesthesia/Blood Transfusion Reaction / Comment(s): occas vertigo Past Psychological History: No Psychological Hx Reported Smoking Status: Never smoker Past Alcohol Use History: None Reported Past Drug Use History: None Reported - Past Family History Father Family Medical History: Cancer Additional Family Medical History / Comment(s): Colon Sister(s) Family Medical History: Cancer Brother(s) Family Medical History: Deep Vein Thrombosis (DVT) Medications and Allergies Home Medications Medication Instructions Recorded Confirmed Type Aspirin 81 mg PO DAILY 04/19/14 05/18/23 History Levothyroxine Sodium [Synthroid] 50 mcg PO QAM 04/19/14 05/18/23 History Magnesium 250 mg PO DIRECTED 12/19/20 05/18/23 History Zinc 30 mg PO DIRECTED 12/19/20 05/18/23 History Omeprazole [PriLOSEC] 40 mg PO DAILY #90 cap 12/30/20 05/18/23 Rx Cholecalciferol [Vitamin D3 (25 25 mcg PO DAILY 05/22/21 05/18/23 History Mcg = 1000 Iu)] Multivit-Min/FA/Lycopen/Lutein 1 each PO DAILY 05/22/21 05/18/23 History [Centrum Silver Tablet] Rosuvastatin [Crestor] 20 mg PO 05/18/23 History Allergies Allergy/AdvReac Type Severity Reaction Status Date / Time adhesive Allergy RED Verified 05/18/23 10:17 IRRITATED SKIN nickel [Nickel] Allergy Rash/Hives Verified 05/18/23 10:17 Objective - Vital Signs Vital signs: Vital Signs Temp 98.8 F 05/03/24 10:12 Pulse 87 05/03/24 10:12 Resp 18 05/03/24 10:12 BP 183/80 05/03/24 10:12 Pulse Ox 96 05/03/24 10:12 FiO2 Intake & Output 05/02/24 05/03/24 05/03/24 18:59 06:59 18:59 Weight 79.832 kg - Constitutional General appearance: Present: cooperative - EENT Eyes: Present: EOMI ENT: Present: hearing grossly normal - Neck Neck: Present: normal ROM - Respiratory Respiratory: bilateral: CTA - Cardiovascular Rhythm: regular Heart sounds: normal: S1, S2 - Integumentary Integumentary: Present: normal turgor - Musculoskeletal Musculoskeletal: Present: gait normal - Psychiatric Psychiatric: Present: A&O x's 3, appropriate affect, intact judgment & insight - Additional findings Additional findings: Breast Exam: BRA: 38DD Inspection: post op changes right breast, bilateral grade 3 ptosis Palpation: Right breast: Multi- positional exam fibrocystic changes no dominant masses or nodules of concern, post op changes, no evidence of recurrent seroma Right axilla: No adenopathy of concern Left breast: Multiple positional exam no dominant masses or nodules of concern; nodularity upper outer quadrant Left axilla: No adenopathy of concern Assessment and Plan Assessment: Impression: Right breast stage I invasive ductal carcinoma/status post lumpectomy/radiation therapy/patient presently on anastrozole/Oncotype 24 no chemotherapy, diagnosed 2022 Seroma right breast past to have largely resolved Slight nodularity left breast upper outer quadrant To review bilateral mammogram Plan: left Breast ultrasound UOQ Review bilateral mammogram Continue to follow with medical oncology Continue to follow with radiation oncology CC; Dr. Bautista
== END ==
LOC: WWCWWP 09:54
PROVIDERS: ATTEND Surgery
DX: Z48.817 Encounter for surgical aftercare following surgery on the skin and subcutaneous tissue (principal); C50.911 Malignant neoplasm of unspecified site of right female breast; N63.21 Unspecified lump in the left breast, upper outer quadrant; L76.33 Postprocedural seroma of skin and subcutaneous tissue following a dermatologic procedure; Z92.3 Personal history of irradiation; Z17.21 Progesterone receptor positive status; Z17.0 Estrogen receptor positive status [ER+]; Z80.3 Family history of malignant neoplasm of breast; Z91.048 Other nonmedicinal substance allergy status; Z91.09 Other allergy status, other than to drugs and biological substances

== ENCOUNTER → 2024-05-04 | Outpatient (CLI) | payer MEDICARE ==
--- NOTE | 2024-05-04 09:51 | USB ---
Reason for Exam: Clinical finding. Patient History: Menarche at age 15. First Full-Term at age 21. Hysterectomy at age 40. Postmenopausal. Breast cancer, right, age 77. 04/23/2024, Benign US breast aspiration single RT on the right side. 06/28/2023, Lumpectomy on the Right side. 06/28/2023, US breast surgical speciment RT on the Right side. 06/28/2023, Malignant US breast localization RT on the right side. 05/26/2023, Malignant US biopsy breast VAD RT on the right side. 03/12/2019, Benign Core Biopsy on the left side. Technique: Method: Targeted. Prior Study Comparison: 06/28/2023 Right MG diagnostic mammo RT wo CAD, [facility]. 04/09/2024 Bilateral MG 3D diag mammo w/cad BOYD, [facility]. 04/23/2024 Right MG diagnostic mammo RT wo CAD, [facility]. Findings: The upper outer quadrant of the left breast, the axilla of the left breast and the retroareolar of the left breast were scanned. At the 3:00 position 9 cm from nipple there is a persistent hypoechoic collection currently measuring 1.6 x 0.3 x 1.0 cm. Previous measurement 2.5 x 1.2 x 1.0 cm. At the 3:00 position 9 cm from nipple there is a heterogenous hypoechoic area measuring 0.9 x 0.4 x 1.0 centimeter area. This is adjacent to the hypoechoic area. This is new from comparison This is away from the reported palpable region. However, ultrasound findings. Suspicious and biopsy is recommended. At the 1:00 position 11 cm from the nipple there is a 0.8 x 0.2 x 0.3 cm hyperechoic area within the breast tissue may be a well-defined lipoma. This is near the region of a reported palpable abnormality. This is in the region of the patient's reported pain Clinical management recommended. Overall Assessment: Suspicious, BI-RAD 4 Management: Ultrasound Core Biopsy of the left breast. A clinical breast exam by your physician is recommended on an annual basis and results should be correlated with mammographic findings. This exam should not preclude additional follow-up of suspicious palpable abnormalities. Results were given to the patient verbally at the time of exam. [facility], , 05/04/2024 9:48 AM. Electronically signed and approved by: Naresh Medina D.O. Radiologis
== END | disposition home or self-care (01) ==
LOC: RADUSWWP 08:50
PROVIDERS: ATTEND Surgery
DX: C50.911 Malignant neoplasm of unspecified site of right female breast (principal); N63.20 Unspecified lump in the left breast, unspecified quadrant; Z78.0 Asymptomatic menopausal state

== ENCOUNTER → 2024-05-18 | Day surgery (SDC) | payer MEDICARE ==
--- NOTE | 2024-05-22 11:30 | MM ---
Reason for Exam: Post Procedure Mammogram. Last screening mammogram was performed 1 month(s) ago. Patient History: Menarche at age 15. First Full-Term at age 21. Hysterectomy at age 40. Postmenopausal. Breast cancer, right, age 77. 04/23/2024, Benign US breast aspiration single RT on the right side. 06/28/2023, Lumpectomy on the Right side. 06/28/2023, US breast surgical speciment RT on the Right side. 06/28/2023, Malignant US breast localization RT on the right side. 05/26/2023, Malignant US biopsy breast VAD RT on the right side. 03/12/2019, Benign Core Biopsy on the left side. Prior Study Comparison: 05/26/2023 Right MG diagnostic mammo RT wo CAD, [facility]. 06/28/2023 Right MG diagnostic mammo RT wo CAD, [facility]. 04/09/2024 Bilateral MG 3D diag mammo w/cad BOYD, [facility]. 04/23/2024 Right MG diagnostic mammo RT wo CAD, [facility]. 05/04/2024 Left US breast limited LT, [facility]. Tissue Density: Left: There are scattered areas of fibroglandular density. Pathology Description: Location: 3 o'clock. Marker Left Behind. Needle Type: Mammotome Cores: 4 Gauge: 13 Targeted area is identified at the 3:00 position, 8 cm from the nipple measuring 1.1 x 0.7 x 0.3 cm. This is a vague area, ovoid, and located adjacent to a benign cyst. The procedure of ultrasound guided core biopsy was explained to the patient. Benefits, alternatives, and risks were discussed. An informed consent was then obtained. The patient was placed in supine positioning for imaging and for the procedure. The overlying skin was prepped and draped in usual sterile fashion. Lidocaine buffered with bicarbonate was used as anesthetic into the skin and subcutaneous tissue up to area of concern in the 3:00 left breast. Under ultrasound guidance, a 13-gauge vacuum-assisted mammotome Elite biopsy gun was used to obtain four core samples. Following this, a Hydromark butterfly clip was left at the site of the lesion. The patient tolerated the procedure well without any immediate complication. The patient was kept in the radiology department for short stay after the procedure and then discharged home in stable condition. Postprocedure mammogram: The patient was transferred to mammography for physician ordered post procedure mammogram for clip placement verification. Post procedure mammogram demonstrates appropriate placement of clip. No clear mammographic correlate to the biopsy site. A benign etiology is suspected. IMPRESSION: Successful, uncomplicated ultrasound guided core biopsy of vague area in the 3:00 position left breast. Overall lower suspicion. Full pathology results to follow. [facility], , 05/18/2024 12:24 PM. Pathology Results: Result: Benign, Fibrocystic change. Pathology and radiology were reviewed. Findings are concordant. LEFT BREAST, 3:00, ULTRASOUND GUIDED NEEDLE CORE BIOPSY: Benign breast with fibrocystic changes. Overall Assessment: Benign Assessment: MG diagnostic mammo LT wo CAD. - Left: Probably benign, BI-RAD 3. Management: Diagnostic Mammogram of both breasts in 6 months. 6 month follow up diagnostic mammogram. Left breast post biopsy follow up. Right breast ongoing follow up after recent lumpectomy to assess for any evolving post treatment change. Electronically signed and approved by: Shoshana Tello M.D. Radiologist
== END ==
LOC: RADUSWWP 10:05
PROVIDERS: ATTEND Surgery
DX: N60.12 Diffuse cystic mastopathy of left breast (principal); R92.8 Other abnormal and inconclusive findings on diagnostic imaging of breast; Z78.0 Asymptomatic menopausal state; Z85.3 Personal history of malignant neoplasm of breast
CPT/HCPCS: 88305; 77065; 19083; A4648

== ENCOUNTER → 2024-11-30 | Outpatient (CLI) | payer MEDICARE ==
[2024-11-30 09:21] VITALS: BP 164/89; PULSE 71; RESP 16; TEMP 97.9
--- NOTE | 2024-11-30 09:35 | P.PN ---
Subjective Progress Note Date: 11/30/24 Principal diagnosis: right breast invasive ductal cancer, [id number]+Her2-G2, 202211-30-24 Principal diagnosis: right breast stage I IDC 2022, nodulatity UOQ left breast on exam Chief Complaint: right breast invasive ductal cancer, [id number]+Her2-G2 05-03-24 Sugey is a 78 year old female with a biopsy proven (+) right breast cancer. She had a bilateral mammogramo on 05-06-23 which led to further work-up of the right breast leading to and ultrasound and diagnositic mammogram of that breast. She had a core biopsy on 05-26-23 of a 14 by 11 mm lesion at 10:00. This was (+) for an invasive ductal cancer, ER+NM+Her2-G2. She had a left breast core biopsy on 03-12-19 which was benign. She did not feel any lumps masses or nodules of concern in either breast. Breast lumpectomy and sentinel node biopsy in 06-28-2023. Since that time she has had some swelling at the postoperative site. She has not had any fever or chills. She has completed a course of radiation therapy. An ultrasound was done of the right breast on 02-15-2024 this revealed a thick-walled fluid collection most consistent with a postoperative seroma in the 9 to 10 o'clock position. The patient on 03-06-24 had 50 cc seroma aspirate at lumpectomy site, the radiologist also did an aspiration 2 weeks ago and 45 cc removed from the right breast. 06-28-23 she underwent a right breast lumpectomy and SNB. Pathology G2 1.2 cm lesion (-) margins, 3 nodes all (-). oncotype: 24 presently on annestrazole 16 fractions of radiation therapy finishing in August 2023 note medical oncology reviewed from 03-05-24 11-30-24 Sugey is a 79-year-old female status post right breast lumpectomy and sentinel node biopsy on 06-28-2023. Pathology revealed a 1.2 cm lesion all margins -3 nodes all negative. This was a G2 ER/NM positive HER2 negative stage I invasive ductal carcinoma. She underwent 16 fractions of radiation therapy finishing in August 2023 She is presently on anastrozole ultrasound core biopsy of left breast on 05-18-24 benign fibrocystic disease She did have a seroma aspirated at the lumpectomy site on 03-06-2024. This was for 50 cc. Prior to this the radiologist had done an aspiration and 45 cc had been removed from that site. 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 and she is going to follow this with radiation oncology continue anastrazole and Fosamax calcium and Vit D Bilateral mammogram 6 11 11 BI-RADS 2, this was personally interpreted At this time the patient is not complaining of any new lumps masses or nodules of concern in either breast Caffiene: 3 cups/day nicotine: none BCP: for about 5 years chocolate: occasional Family History: paternal remote aunt: breast cancer Hormonal History: menarche: 15 , breast fed: no, age at first :21 menopause: hysterectomy at 40, left her ovaries Surgery: right arm right knee replacement hysterectony/appendectomy bilateral cataracts tubaligation Medical History: high cholesterol hypothyroid Social History: nicotine: none alcohol: none drugs: none - Constitutional Constitutional: Denies chills, Denies fever - EENT Eyes: denies blurred vision, denies pain Ears: deny: decreased hearing, tinnitus Ears, nose, mouth and throat: Denies headache, Denies sore throat - Breasts Breasts: bilateral: as per HPI - Cardiovascular Cardiovascular: Denies chest pain, Denies shortness of breath - Respiratory Respiratory: Denies cough - Gastrointestinal Comment: H Pylori in the past and ulcer Gastrointestinal: Denies abdominal pain, Denies diarrhea, Denies nausea, Denies vomiting - Genitourinary (Female) Genitourinary: Denies dysuria, Denies hematuria - Menstruation Menstruation: Reports post hysterectomy - Musculoskeletal Musculoskeletal: Denies myalgias - Integumentary Integumentary: Denies pruritus, Denies rash - Neurological Neurological: Denies numbness, Denies weakness - Psychiatric Psychiatric: Denies anxiety, Denies depression - Endocrine Endocrine: Reports as per HPI - Hematologic/Lymphatic Comment: baby aspirin daily - Allergic/Immunologic Allergic/Immunologic: Reports seasonal allergies Past Medical History Past Medical History: Hyperlipidemia, Thyroid Disorder Additional Past Medical History / Comment(s): varicose veins, past hx migraines, fell 2015 & fx. right upper.occas vertigo, Dx. wit H pylori- has been on antbx. & re checking for this. History of Any Multi-Drug Resistant Organisms: None Reported Past Surgical History: Appendectomy, Hysterectomy, Orthopedic Surgery, Tubal Ligation Additional Past Surgical History / Comment(s): rectocele/cystocele repair, cataract surg, fx right arm-put a plate and screws in Past Anesthesia/Blood Transfusion Reactions: No Reported Reaction Additional Past Anesthesia/Blood Transfusion Reaction / Comment(s): occas vertigo Past Psychological History: No Psychological Hx Reported Smoking Status: Never smoker Past Alcohol Use History: None Reported Past Drug Use History: None Reported - Past Family History Father Family Medical History: Cancer Additional Family Medical History / Comment(s): Colon Sister(s) Family Medical History: Cancer Brother(s) Family Medical History: Deep Vein Thrombosis (DVT) Medications and Allergies Home Medications Medication Instructions Recorded Confirmed Type Aspirin 81 mg PO DAILY 04/19/14 05/18/23 History Levothyroxine Sodium [Synthroid] 50 mcg PO QAM 04/19/14 05/18/23 History Magnesium 250 mg PO DIRECTED 12/19/20 05/18/23 History Zinc 30 mg PO DIRECTED 12/19/20 05/18/23 History Omeprazole [PriLOSEC] 40 mg PO DAILY #90 cap 12/30/20 05/18/23 Rx Cholecalciferol [Vitamin D3 (25 25 mcg PO DAILY 05/22/21 05/18/23 History Mcg = 1000 Iu)] Multivit-Min/FA/Lycopen/Lutein 1 each PO DAILY 05/22/21 05/18/23 History [Centrum Silver Tablet] Rosuvastatin [Crestor] 20 mg PO 05/18/23 History Allergies Allergy/AdvReac Type Severity Reaction Status Date / Time adhesive Allergy RED Verified 05/18/23 10:17 IRRITATED SKIN nickel [Nickel] Allergy Rash/Hives Verified 05/18/23 10:17 Objective - Constitutional General appearance: Present: cooperative - EENT Eyes: Present: EOMI ENT: Present: hearing grossly normal - Neck Neck: Present: normal ROM - Respiratory Respiratory: bilateral: CTA - Cardiovascular Rhythm: regular Heart sounds: normal: S1, S2 - Integumentary Integumentary: Present: normal turgor - Musculoskeletal Musculoskeletal: Present: gait normal - Psychiatric Psychiatric: Present: A&O x's 3, appropriate affect, intact judgment & insight - Additional findings Additional findings: Breast Exam: BRA: 38DD Inspection: post op changes right breast, bilateral grade 3 ptosis Palpation: Right breast: Multi- positional exam fibrocystic changes no dominant masses or nodules of concern, post op changes, no evidence of recurrent seroma Right axilla: No adenopathy of concern Left breast: Multiple positional exam no dominant masses or nodules of concern; nodularity upper outer quadrant Left axilla: No adenopathy of concern Assessment and Plan Assessment: Impression: Right breast stage I invasive ductal carcinoma/status post lumpectomy/radiation therapy/patient presently on anastrozole/Oncotype 24 no chemotherapy, diagnosed 2022 Seroma right breast past to have largely resolved Slight nodularity left breast upper outer quadrant bilateral mammogram 11-22-24 BIRAD 2, personally interpreted Plan: bilateral mammogram November 2025 Continue to follow with medical oncology Continue to follow with radiation oncology follow up here in 6 months CC; Dr. Bautista
== END ==
LOC: WWCWWP 08:53
PROVIDERS: ATTEND Surgery
DX: Z12.31 Encounter for screening mammogram for malignant neoplasm of breast (principal); C50.911 Malignant neoplasm of unspecified site of right female breast; N63.21 Unspecified lump in the left breast, upper outer quadrant; Z91.048 Other nonmedicinal substance allergy status